=== PATIENT | male | born 1940 | race Caucasian/White ===

== ENCOUNTER → 2017-12-25 06:44 | Outpatient (CLI) | payer MEDICARE, SELFPAY ==
--- NOTE | 2017-12-25 06:46 | ECHOCS_ITS ---
Reason For Study: CAD/ASHD Procedure This was a 2D Doppler, Color Flow transthoracic echocardiogram. The study was technically difficult. Contrast injection was performed. Exam performed in department. Left Ventricle Normal LV size. Left ventricular systolic function is normal. The estimated ejection fraction is 65 %. No evidence for diastolic dysfunction. No regional wall motion abnormalities noted. Right Ventricle Normal RV size. Normal systolic function. Atria Normal left atrium. Normal right atrium. Mitral Valve There is mild to moderate mitral annular calcification. Tricuspid Valve Normal tricuspid valve. Mild (1+) tricuspid valve insufficiency. Pulmonary artery systolic pressure is 28 mmHg. Aortic Valve Normal aortic valve. Pulmonic Valve The pulmonic valve is not well visualized. Great Vessels Normal aortic root. The pulmonary artery is normal size. Normal inferior vena cava. Pericardium/Pleural No pericardial effusion. Medication Diluted definity 3.0ml given slow IV push to enhance endocardial definition. MMode/2D Measurements & Calculations LVIDd: 4.2 cm IVSd: 1.2 cm Ao root diam: 3.4 cm LVIDs: 3.0 cm LVPWd: 0.91 cm LA dimension: 3.9 cm RVDd: 2.3 cm FS: 28.6 % LAV(MOD-bp): 41.6 ml LAV(MOD-bp) Indexed: 21.6 ml/m2 LA A4 area: 13.8 cm2 RA A4 area: 12.3 cm2 LAV(MOD-sp2): 37.2 ml LAV(MOD-sp4): 37.9 ml Time Measurements MV dec time: 0.22 sec Doppler Measurements & Calculations MV E max terrell: 65.3 cm/sec Lat Peak E' Terrell: 5.3 cm/sec Med Peak E' Terrell: 4.7 cm/sec MV A max terrell: 90.3 cm/sec E/E' lat: 12.3 E/E' med: 13.9 MV E/A: 0.72 Ao V2 max: 88.2 cm/sec LV V1 max: 69.7 cm/sec PA V2 max: 67.2 cm/sec Ao max P.1 mmHg LV V1 max P.9 mmHg TR max terrell: 240.6 cm/sec TR max P.3 mmHg Interpretation Summary Normal LV size. Left ventricular systolic function is normal. The estimated ejection fraction is 65 %. No evidence for diastolic dysfunction. Mild (1+) tricuspid valve insufficiency. Contrast injection was performed. Ordering Physician: Herman López Referring Physician: Herman López Performed By: Angelique Cassidy, JOI, RVT
--- NOTE | 2017-12-25 12:43 | STRESSREP ---
Stress Test Report Exercise myocardial perfusion stress test. 77-year-old man with a history of coronary artery disease status post angioplasty and stenting of the left anterior descending artery and right coronary artery. Stress protocol: Resting EKG demonstrates normal sinus rhythm with a rate of 80 bpm. Resting blood pressure is 152/94 mmHg. Patient exercised according to the regular Riaz protocol for a total duration of 3 minutes. The maximum heart rate attained was 148 bpm which was 102% of maximal predicted heart rate the maximum workload attained was 4.6 metabolic equivalents. The patient maintained sinus rhythm throughout the recording. At rest there were no ST or T-wave changes noted suggest ischemia peak exercise no ST or T-wave changes were noted suggest ischemia. No obvious clinical angina was noted the patient however got markedly short of breath necessitating discontinuation of the test. Blood pressure was 184/88 minute meters of mercury. Myocardial perfusion protocol. 11.8 mCi of technetium 99m sestamibi was injected at rest. The patient exercised according to regular Riaz protocol for 3 minutes attaining 102% maximum predicted heart rate and a workload of 4.6 metabolic equivalents. At peak exercise 34.1 mCi of technetium 99m sestamibi was injected. Stress images were obtained stress and rest images were reconstructed and compared in the short axis vertical long and horizontal long axis. Gated images were also obtained. Perfusion SPECT analysis: Review of the stress images demonstrate normal uptake of tracer noted in all areas myocardium except for mildly reduced perfusion in the mid inferior wall. The resting images demonstrate a similar pattern. A previous inferior infarct cannot be completely excluded. No obvious ischemia is however seen of the low workload attained. Gated SPECT analysis: The gated ejection fraction is 64%. Conclusion: Exercise myocardial perfusion stress test with no evidence of ischemia noted at a low workload. The low workload could affect sensitivity for detection of ischemia. Marked functional aerobic impairment. Preserved ejection fraction.
== END ==
PROVIDERS: Family Provider Family Medicine; PCP Family Medicine; Visit Provider Internal Medicine Cardiovascular Disease
DX: I25.10 Atherosclerotic heart disease of native coronary artery without angina pectoris (principal)
CPT/HCPCS: 78452; 93017; 93306; A9500; Q9957; A4216; C8929

== ENCOUNTER → 2019-12-10 | Outpatient (CLI) | payer MEDICARE, SELFPAY ==
[2019-11-11 12:40] VITALS: BMI 30.3
--- NOTE | 2019-12-10 06:36 | ECHOCS_ITS ---
Reason For Study: CAD/ASHD Procedure This was a 2D Doppler, Color Flow transthoracic echocardiogram. The study was technically difficult. Contrast injection was performed. Exam performed in department. Left Ventricle Normal LV size. Left ventricular systolic function is normal. The estimated ejection fraction is 65 %. Stage 1 diastolic dysfunction. No regional wall motion abnormalities noted. Right Ventricle Normal RV size. Normal systolic function. Atria Normal left atrium. Normal right atrium. Mitral Valve Normal mitral valve. Tricuspid Valve Normal tricuspid valve. Aortic Valve Normal aortic valve. Pulmonic Valve Normal pulmonic valve. Great Vessels Normal aortic root. The pulmonary artery is normal size. Normal inferior vena cava. Pericardium/Pleural No pericardial effusion. Medication Diluted definity 3ml given slow IV push to enhance endocardial definition. MMode/2D Measurements & Calculations LVIDd: 3.4 cm IVSd: 1.1 cm LAV(MOD-bp): 31.8 ml LVIDs: 2.7 cm LVPWd: 0.99 cm FS: 20.5 % LAV(MOD-bp) Indexed: 16.3 ml/m2 LAV(MOD-sp2): 38.8 ml LAV(MOD-sp4): 23.3 ml LA A4 area: 11.5 cm2 RA A4 area: 8.5 cm2 Time Measurements MV dec time: 0.28 sec Doppler Measurements & Calculations MV E max terrell: 68.3 cm/sec Lat Peak E' Terrell: 6.1 cm/sec Med Peak E' Terrell: 3.9 cm/sec MV A max terrell: 84.9 cm/sec E/E' lat: 11.3 E/E' med: 17.6 MV E/A: 0.80 MV V2 max: 83.5 cm/sec MV P1/2t max terrell: 66.0 cm/sec Ao V2 max: 88.4 cm/sec MV max P.8 mmHg MV P1/2t: 70.9 msec Ao max P.1 mmHg MV V2 mean: 53.4 cm/sec MV mean P.3 mmHg MV dec slope: 272.6 cm/sec2 MV V2 VTI: 19.1 cm MVA(P1/2t): 3.1 cm2 LV V1 max: 82.3 cm/sec PA V2 max: 85.7 cm/sec LV V1 max P.7 mmHg Interpretation Summary Normal LV size. Left ventricular systolic function is normal. The estimated ejection fraction is 65 %. Stage 1 diastolic dysfunction. Contrast injection was performed. Ordering Physician: Herman López Referring Physician: Herman López Performed By: Kelvin Castellon RCS
--- NOTE | 2019-12-10 13:38 | STRESSREP_ITS ---
Stress Test Report Pharmacologic myocardial perfusion stress test. 79-year-old man with a history of coronary artery disease status post previous angioplasty and stenting of the left anterior descending artery in the right coronary artery. Stress protocol: Resting EKG demonstrates normal sinus rhythm with a rate of 77 bpm normal intervals are noted resting blood pressures 138/82 mmHg. 0.4 mg of regadenoson was infused per usual protocol followed by rapid venous flush injection continuous EKG monitoring was performed. The maximum heart rate attained was 103 bpm which was 72% of maximum active heart rate the maximum workload was 1 metabolic equivalent. At rest there were no ST or T wave changes noted suggest ischemia peak exercise upsloping ST changes were noted with no meet the criteria for ischemia. Resting blood pressures 132/82 with a final blood pressure of 130/70 mmHg the peak blood pressure 140/74 mmHg. Myocardial perfusion protocol. 14.5 mCi of technetium 99m sestamibi was injected at rest. 0.4 mg of regadenoson was infused per usual protocol peak infusion 44.0 mCi of technetium 99m sestamibi was injected stress images were obtained stress and rest images were reconstructed and compared in the short axis vertical long horizontal long axis. Gated images were also obtained Perfusion SPECT analysis: Review of the stress images demonstrate normal uptake of tracer noted in the septum anterior wall and lateral wall. The stress images demonstrate reduced perfusion involving the inferior wall. The resting images demonstrate improved perfusion suggestive of inferior wall ischemia. The gated ejection fraction is noted to be 65%. Conclusion: Pharmacologic myocardial perfusion stress test with evidence of inferior ischemi a. Preserved ejection fraction.
== END | disposition home or self-care (01) ==
PROVIDERS: PCP Family Medicine; Referring Provider Internal Medicine Cardiovascular Disease; Visit Provider Internal Medicine Cardiovascular Disease
DX: I25.10 Atherosclerotic heart disease of native coronary artery without angina pectoris (principal); I71.4 Abdominal aortic aneurysm, without rupture
CPT/HCPCS: 78452; 93017; 93306; A9500; Q9957; A4216; C8929; J2785

== ENCOUNTER 2019-12-27 07:42 | Day surgery (SDC) | payer MEDICARE, SELFPAY ==
[2019-11-11 12:40] VITALS: BMI 30.3
--- NOTE | 2019-12-13 11:50 | RAD_ITS ---
STUDY: X-RAY CHEST REASON FOR EXAM: Male, 79 years old. COUGH, CONGESTION AND SOB ABN STRESS TEST. TECHNIQUE: PA and lateral views of the chest. COMPARISON: 11/30/2016 FINDINGS: There is hyperinflation of the lungs consistent with chronic obstructive lung disease (COPD). There is no demonstrated pleural abnormality. Normal size heart. Normal mediastinum and juan. Normal visualized pulmonary arteries. Normal visualized aortic arch and descending thoracic aorta. Normal visualized thoracic spine. Normal visualized ribs, clavicles, and shoulders. There is no demonstrated abnormality of the visualized soft tissue structures of the upper abdomen. RAD/Chest PA and Lateral IMPRESSION: Emphysema without pneumonia or atelectasis. Electronically Signed: Pancho Swift MD at 12:50 EDT Tel , Service support ,
[2019-12-13 11:59] LABS: Absolute Lymphocyte Count 1.93 X10^3/uL (0.83-4.51); Absolute Neutrophil Count 3.1 X10^3/uL (2.0-7.7); Basophil# 0.05 X10^3/uL; Basophil% 0.8 % (0-1); Eosinophil# 0.19 X10^3/uL; Eosinophils% 3.2 % (0-5); Hemoglobin 15.7 g/dL (13.0-16.5); Lymphocyte # 1.93 X10^3/ul (4.0); Lymphocyte % 32.8 % (19-41); Mean Corp Hgb Conc 34.1 g/dL (32-36); Mean Corpuscular Hgb 30.3 pg (27.0-32.0); Mean Corpuscular Volume 88.8 fL (80-94); Mean Platelet Vol. 10.1 fl (6.2-12.0); Monocyte# 0.59 X10^3/uL; NRBC Flagged by Analyzer 0 % (0-5); Neutrophil # 3.11 X10^3/uL (2.7-7.7); Neutrophil % 52.9 % (47-70); Platelet Count 145 K/mm3 (150-450); RBC Distribution Width CV 12.3 % (11.6-14.6); RBC Distribution Width SD 39.9 fl (35.1-43.9); Red Blood Count 5.18 M/mm3 (4.6-6.2); White Blood Count 5.9 K/mm3 (4.4-11.0)
[2019-12-13 12:13] LABS: Anion Gap 3 (5-15); BUN 14 mg/dL (7-18); BUN/Creat Ratio 15.4 RATIO (10-20); Calcium,Total 8.8 mg/dL (8.5-10.1); Chloride 107 mmol/L (98-107); Creatinine, Serum 0.91 mg/dL (0.70-1.30); EST Glomerular Filtration Rate 86 mL/min (>60); Est Glom Filt Rate - Afr Amer 104 mL/min (>60); Glucose 88 mg/dL (74-106); Potassium 3.9 mmol/L (3.5-5.1); Sodium Level 139 mmol/L (136-145)
[2019-12-13 12:16] LABS: Prothrombin Time (Protime)PT. 12.9 SECONDS (11.7-14.9)
[2019-12-13 12:17] LABS: Partial Thromboplast Time 28.4 Seconds (24.1-36.2)
[2019-12-24 12:52] VITALS: BMI 30.3
[2019-12-27] VITALS (33 sets, daily range): BP systolic 92–134; BP diastolic 62–109; PULSE 69–97; RESP 13–97; TEMP 36.8–36.9; O2SAT 17–97; BMI 27.9; BMI 30.3
--- NOTE | 2019-12-27 08:00 | HP_ITS ---
[facility] History of Present Illness Details: PREETHI OQUENDO, is a 79 M who presents to the office today for a cardiovascular outpatient follow-up. He has a history of coronary artery disease status post previous angioplasty and stenting remotely to LAD and RCA in 2003. He also has a history of hyperlipidemia, previous tobacco use, and abdominal aortic aneurysm. Pt denies chest, arm, jaw, or neck discomfort. His exercise tolerance is stable. Pt denies symptoms of CHF, palpitations, lightheadedness, dizziness, near syncopal or syncopal episodes. Pt denies edema or claudication issues. Pt. denies orthopnea, PND, myalgia, or unexplainable fatigue. His physical exam demonstrates clear lung paige regular rate and rhythm and no pedal edema He underwent a stress test which demonstrated Pharmacologic myocardial perfusion stress test with evidence of inferior ischemia. Preserved ejection fraction. Intake Vital Signs 12/31/19 BMI 27.9 Intake Visit Reasons: Amb Documentation Allergies No Known Allergies Allergy (Verified 11/11/19 12:42) [facility] Medical History Atherosclerosis of coronary artery of [place] heart without angina pectoris (Chronic) Hyperlipidemia (Chronic) Abdominal aortic aneurysm (AAA) (Chronic) Arthritis (Chronic) BPH (benign prostatic hyperplasia) (Chronic) Obesity (BMI 30.0-34.9) (Chronic) Surgical History Stented coronary artery (Chronic 12/27/19) History of coronary artery stent placement (Chronic 2003) Family History Mother Heart disease Social History Smoking Status: Former smoker quit date: 06/06/14 pack-years: 80 ROS Const Const: Negative for fatigue, weakness, headache(s), frequent falls, difficulty sleeping or excessive sweating Eyes Eyes: Negative for loss of peripheral vision, transient loss of vision, blurry vision, double vision or tunnel vision ENT ENT: Negative for headache(s) or balance problems Cardio Chest Pain: No Palpitations: No Edema: None Muscle aches with walking: None Resp Respiratory: Positive for SOB with activity; negative for SOB at rest, SOB orthopnea\SOB lying down, Cough or paroxysmal nocturnal dyspnea Additional Details: URI GI GI: Negative nausea, vomiting, heartburn or black,tarry stools : Negative for hematuria Musc Musc: Negative for muscle aches/ myalgia, muscle weakness, joint pain or balance problems Skin Skin: Negative non-healing lesions, rash or unusual bruising Neuro Neuro: Negative for frequent falls, headache(s), weakness, blurry vision or double vision Miguelangel Hematologic/Lymphatic: Negative for easy bleeding or easy bruising Endo Endo: Negative for fatigue or excessive sweating Psych Psych: Negative for anxiety or depression Allergy Allergy/Immunology: Negative for rash Cardiology Exam Const Appearance: cooperative, healthy appearing, no acute distress, well developed and well groomed Nutritional Appearance: average body habitus and well nourished Orientation: alert, awake and oriented x3 Head Head: normal to inspection, normocephalic and atraumatic Ears: hearing grossly normal bilaterally and external ears normal Nose: external nose normal, nares normal, nasal mucous membranes and turbinates normal, septum normal, no nasal discharge Face and Sinus: face symmetric Mouth: oral mucosae normal, tongue normal, oropharynx normal and moist mucous membranes Teeth and gingiva: dentition normal Throat: posterior oropharynx normal, tonsils normal and uvula midline Eyes General: appearance normal, both eyes and all related structures Eyelids: eyelids normal Conjunctivae: conjunctivae normal Pupils: PERRL, normal by confrontation and accommodation normal EOM: EOM intact bilaterally Neck Neck: normal visual inspection, trachea midline and no JVD JVD: +5 Carotids: normal carotid upstroke and bounding pulses Chest Chest inspection: normal inspection of the chest, symmetric chest movement and normal respiratory effort Auscultation: Bilateral: Clear to Auscultation Cardio Palpation: normal PMI Rate: regular rate Rhythm: regular rhythm Heart sounds: S1 normal, S2 normal and normal, physiologic split S2; negative rub, gallop or murmur GI GI: normal to inspection, soft, no hepatosplenomegaly and bowel sounds present Neuro General: alert, awake, oriented x3, gait normal, moves all extremities and no focal sensory deficit Skin Skin: no rashes or lesions noted Extremities Pulses: Normal: Right Femoral Pulse, Left Femoral Pulse, Right Dorsalis Pedis Pulse, Left Dorsalis Pedis Pulse, Right Posterior Tibial Pulse, Left Posterior Tibial Pulse, Right Radial Pulse, Left Radial Pulse Lower Extremity Edema: None: Bilateral Musculoskel Musculoskeletal: No joint tenderness Psych Psychological: normal affect Assessment & Plan Problems 1. Atherosclerosis of [place] coronary artery of [place] heart without angina pectoris I25.10 2. Pure hypercholesterolemia E78.00 3. Abnormal stress test R94.39 Plan Based on stress test, he will undergo a heart cath. He is aware that if he requires stenting he will need to spend the night. He will follow up in the office accordingly. Coding Level of Care Code No Charge Diagnoses Atherosclerosis of [place] coronary artery of [place] heart without angina pectoris I25.10 ??Coronary Disease-Associated Artery/Lesion type: [place] artery Pure hypercholesterolemia E78.00 ??Hyperlipidemia type: pure hypercholesterolemia Abnormal stress test R94.39 Coding Level of Care Code No Charge Diagnoses Atherosclerosis of [place] coronary artery of [place] heart without angina pectoris I25.10 ??Coronary Disease-Associated Artery/Lesion type: [place] artery Pure hypercholesterolemia E78.00 ??Hyperlipidemia type: pure hypercholesterolemia Abnormal stress test R94.39 Supplemental Info Supplemental Information Diagnostics Electrocardiogram 12/28/19 Echocardiogram 12/10/19 Stress Test Nuclear Medicine 12/10/19 Stress Test 12/10/19 Cardiac Catheterization 12/27/19 Chest X-Ray 12/13/19
--- NOTE | 2019-12-27 09:51 | CL.D_ITS ---
Patient Name: PREETHI OQUENDO Study Date: 12/27/2019 Performing: Herman López MD Ht: 66.14 inches 168 cm : 1940 Wt: 187.39 lbs 85 kg Age: 79 Gender: male BSA: 1.95 PROCEDURE(S) PERFORMED [id number]/LV CLINICAL PROFILE AND INDICATIONS Indications: Suspected CAD Heart Failure: None Stress/Imaging Date: 12/21/2019Stress Test with SPECT MPI: Positive Intermediate Risk CAD Presentations: Other: SOB CONCLUSIONS Moderate CADInvolving the right coronary artery with moderately severe CAD noted involving the mid ci rcumflex artery. The previously placed stent in the left anterior descending artery as well as the r ight coronary artery has mild in-stent stenosis. Patient also has an abnormal inferior ischemia. RECOMMENDATIONS Referred for immediate PCI DESCRIPTION OF PROCEDURE The patient arrived to the procedure lab. The risks and benefits of the procedure as well as a full d escription of our services here and current unavailability of surgical backup were fully explained to the patient and/or their significant other prior to the catheterization. The Timeout was completed, verifying the correct patient and procedure. The patient's procedural site was prepped and draped in the usual fashion. Local anesthetic was given subcutaneously to right groin region with Lidocaine 2%. Using a modified Seldinger technique, arterial access was obtained via the right femoral artery, a 5 Fr sheath was inserted. Left Coronary Artery selective angiography was performed in multiple views u sing a 5 Fr. JL4 catheter. Right Coronary Artery selective angiography was then performed in multiple views using a 5 Fr. 3DRC (Tej) catheter. Left Ventriculography was performed in GLOVER projection using a 5 Fr. Pigtail catheter. LV to AO pullback pressures were then recorded. CORONARY ANGIOGRAPHY DOMINANCE: Right Dominant LEFT HEART ASSESSMENT Left Ventricular Ejection Fraction: by LV Gram 60 % Normal LV wall motion Normal Left Ventricular systolic function LEFT MAIN: Mild calcification LEFT ANTERIOR DESCENDING ARTERY: MID LAD: Previously placed stent is patent DIAGONAL 1: Proximal - Moderate luminal irregularities up to 50% CIRCUMFLEX ARTERY: PROX CIRC: Moderate luminal irregularities up to 50% DISTAL CIRC: 75 % Stenosis RIGHT CORONARY ARTERY: MID RCA: Previously placed stent has an instent 30 % restenosis COMPLICATIONS PROCEDURE MEDICATIONS Versed 1 mg IV Oxygen: 2 L/min via nasal cannula Heparin 6000 unit(s) IV 12/27/2019 09:28:28 Nitro 200 mcg IC 12/27/2019 09:29:47 IV Bolus: .45 NaCl ml total 12/27/2019 09:11:48 SUMMARY OF HEMODYNAMIC DATA Time AIR REST ECG 07:59:23 AO 89/67 (76) SA 09:11:21 LV 87/5, 9 09:19:06 LV 88/7, 10 09:19:12 LV 87/7, 12 09:19:55 LVp 88/5, 12 09:19:59 AOp 94/58 (71) 09:20:04 AO 111/63 (80) 09:22:42 Signed By Herman López MD On 12/27/2019 9:50:59 AM Herman López MD
[2019-12-27 10:16] LABS: ACT Activated Clotting Time 197 sec (74-137)
--- NOTE | 2019-12-27 10:17 | CL.I_ITS ---
Patient Name: PREETHI OQUENDO Study Date: 12/27/2019 Performing: Micky Monae MD Ht: 66.14 inches 168 cm : 1940 Wt: 187.39 lbs 85 kg Age: 79 Gender: male BSA: 1.95 PROCEDURE(S) PERFORMED [id number] W OR WO PTCA, SINGLE CORONARY ARTERY CLINICAL PROFILE AND CO-MORBIDITIES Indications: Suspected CAD, Stable Known CAD Heart Failure: None Stress/Imaging Date: 12/21/2019 Stress Test with SPECT MPI: Positive Intermediate Risk Angina Classification Anginal Classification w/in 2 Weeks: Anginal Equivalent Dyspnea CAD Presentations: Other: SOB Other: dyspnea on exertion Comorbidities/Risk Factors: Hypertension Dyslipidemia CONCLUSIONS Successful PTCA/NAMRATA to distal LCX with a 2.5 x 24 Promus Synergy, post dilated with a 2.5 and 3.0 x 8 NC balloon; 75%-->0%, no dissection. RECOMMENDATIONS Highly recommend quitting all tobacco products Follow up with primary skiing instructor Risk factor modification ASA Indefinitley Plavix for at least 12 months Routine post interventional care Refer for Outpatient Cardiac Rehab Manual sheath removal per protocol Follow up with Dr. López Manual sheath removal. D/w Dr López. Will pursue medical management of proximal LCX and OM as these appeared to have non-obstructive disea se. If pt continues to have NIELSEN and/or anginal symptoms would consider PCI of OM and proximal LCX. DESCRIPTION OF PROCEDURE The patient arrived to the procedure lab. The risks and benefits of the procedure as well as a full d escription of our services here and current unavailability of surgical backup were fully explained to the patient and/or their significant other prior to the catheterization. The Timeout was completed, verifying the correct patient and procedure. The patient's procedural site was prepped and draped in the usual fashion. Local anesthetic was given subcutaneously to right groin region with Lidocaine 2% Using a modified Seldinger technique,arterial access was obtained via the right femoral artery, a 5Fr sheath was inserted. Left Coronary Artery selective angiography was performed in multiple views usin g a 5 Fr. JL4 catheter. Right Coronary Artery selective angiography was then performed in multiple vi ews using a 5 Fr. 3DRC (Tej) catheter. Left Ventriculography was performed in GLOVER projection usi ng a 5 Fr. Pigtail catheter. LV to AO pullback pressures were then recorded.The images were reviewed and options discussed. A decision was then made to proceed with an Intervention, IVUS o r other adjunct procedure. Arterial sheath was exchanged for a 6 Fr Sheath. EBU 3.75 Guide catheter was inserted and engaged into the LCA. BMW Guide wire was advanced to the Circumflex. Emerge 2.00x12 Balloon catheter was ins erted. PTCA balloon inflated at 7 atms for 13 secs. PTCA balloon inflated at 7 atms for 11 secs. PTCA balloon inflated at 9 atms for 16 secs. PTCA balloon inflated at 9 atms for 22 secs. Angiogram perfo rmed post balloon dilatation. Synergy 2.50x24 Drug Eluting stent was inserted. Angiogram performed po st stent deployment. NC Emerge 3.00x8 Balloon catheter was inserted. Angiogram performed post balloon dilatation. NC Emerge 2.50x8 Balloon catheter was inserted. Angiogram performed post balloon dilatat ion. Contrast was injected through the sheath and the Right Iliac and Femoral artery were assessed fo r possible closure device. The arterial sheath was sutured in place and capped INTERVENTION INFORMATION LESION SITE: Circumflex (Distal) Lesion Complexity: High/C, lesion at bifurcation: No, thrombus present: No, lesion length: 24 mm, cul prit lesion: Yes Pre Stenosis: 75 % Pre intervention CAMILLA flow: 3 PROCEDURE: Drug Eluting Stent with pre and post dilatation Post Stenosis: 0 % Post intervention CAMILLA flow: 3 Lesion Devices: Dang .014 BMW [place] Straight 190cm Medtronic 6 Fr EBU3.75 100cm Guide Catheter [employer] EMERGE MR 2.00x12 BALLOON [employer] Synergy MR NAMRATA 2.50x24 Davis Sci NC EMERGE MR 3.00x08 BALLOON [employer] NC EMERGE MR 2.50x08 BALLOON COMPLICATIONS No Complications PROCEDURE MEDICATIONS Versed 1 mg IV Oxygen: 2 L/min via nasal cannula Heparin 6000 unit(s) IV 12/27/2019 09:28:28 Nitro 200 mcg IC 12/27/2019 09:29:47 IV Bolus: .45 NaCl 700ml total 12/27/2019 09:11:48 SUMMARY OF HEMODYNAMIC DATA Time AIR REST ECG 07:59:23 AO 89/67 (76) SA 09:11:21 LV 87/5, 9 09:19:06 LV 88/7, 10 09:19:12 LV 87/7, 12 09:19:55 LVp 88/5, 12 09:19:59 AOp 94/58 (71) 09:20:04 AO 111/63 (80) 09:22:42 Signed By Micky Monae MD On 12/27/2019 10:16:19 AM Micky Monae MD
--- NOTE | 2019-12-27 10:24 | EKG12_ITS ---
Test Reason : POST PCI Blood Pressure : / mmHG Vent. Rate : 074 BPM Atrial Rate : 074 BPM P-R Int : 196 ms QRS Dur : 090 ms QT Int : 380 ms P-R-T Axes : 080 086 076 degrees QTc Int : 421 ms Normal sinus rhythm Normal ECG When compared with ECG of 30-NOV-2016 10:34, Vent. rate has decreased BY [address] elevation now present in Inferior leads Nonspecific T wave abnormality no longer evident in Lateral leads Confirmed by MCKENNA VACA ([id number]), offline editor CHAYA EVANS ([id number]) on 12/30/2019 7:59:49 AM Referred By: Herman López Confirmed By:MCKENNA VACA
[2019-12-27] MEDS: 0.9% Normal Saline 1,000 ML 150 ML IV (10:44)
--- NOTE | 2019-12-27 11:10 | CRPHASE1 ---
Patient Communication PHII Cardiac Rehab Discussed with Patient:: Yes Guide to Cardiac Rehab Given to Patient:: Yes Cardiac Rehab Facility Choice List Given to Patient:: Yes - pt chooses [facility] Choice Program [facility] CR PHII:: Communication Given to CR, Refer to [facility] Bulldozer Mechanic:: Micky Monae Phase II Cardiac Rehab:: Yes Sessions:: 36 sessions - 3 days/wk, 12 weeks Risk Factors/Lifestyle Smoking Status: Former smoker Hx Dyslipidemia: Yes Height: 5 ft 6 in Weight:: 85.275 kg BMI: 30.3 Family History: Family History (Last Reviewed 11/11/19 @ 14:[address] Herman López MD) Mother Heart disease Phase I Education Given On:: [place], Nutrition, Antiplatelet medication, CHF, Smoking cessation, Diabetes - Type I, Diabetes - Type II Issues Affecting Care:: None Knowledge of Condition:: Yes Learning Preferences: Verbal Hospital Course Cardiac Cath Date:: 12/27/19 Medical/Surgical History Dyslipidemia:: Yes PTCA:: Yes Discharge/Home/Social Eval Discharge Disposition: Home Marital Status: Cardiac Rehabilitation Info Cardiac Rehabilitation Program Information: Cardiac Rehabilitation is important for patients like you who are recovering from a heart problem. Cardiac rehabilitation programs are recognized as integral to the continued care of the patient with coronary heart disease. The cardiac rehabilitation program is designed to optimize a patient's physical, psychological, and social functioning. Health managed care nurse work in cardiac rehabilitation programs and assist you with getting the treatments you need to get stronger and healthier - like exercise, healthy eating habits, and medications. Cardiac rehabilitation has been show to help people with heart problems live longer and have better life enjoyment than people who do not go to cardiac rehabilitation. Please contact the Cardiac Rehabilitation Program at [facility] at in two weeks if you have not heard from them.
--- NOTE | 2019-12-27 11:14 | CRPH1.INSTRU ---
General Education CAD and cardiac anatomy and function:: Patient communicates acknowledgment Explanation of diagnoses and procedures:: Patient communicates acknowledgment Sign/Symptoms of AR:: Patient communicates acknowledgment Antiplatelet therapy: Patient communicates acknowledgment Proper use of NTG-SL: Not instructed Emergency procedures and activation of EMS: Patient communicates acknowledgment Compliance of all prescribed medications: Patient communicates acknowledgment Smoking Recommendations Include:: Previous smoker; encourage continued cessation Nicotine/Smoking Response Code:: Patient communicates acknowledgment Dyslipidemia Recommendations Include:: Lipid profile provided, Reviewed NCEP/ATP guidelines, Therapeutic Lifestyle Change dietary guidelines Dyslipidemia Response Code:: Patient communicates acknowledgment Overweight/Obesity Patient Overweight/Obesity Risk Factors Are:: Obesity - > or = 30 Recommendations Include:: Weight loss of 5-10%, Reduced calorie diet, Exercise 5-7 times/week Overweight/Obesity:: Patient communicates acknowledgment Hypertension Hypertension:: Patient communicates acknowledgment Heart Disease Heart Disease Response Code:: Patient communicates acknowledgment Diabetes Diabetes:: Patient communicates acknowledgment Metabolic Syndrome Metabolic Syndrome Response Code:: Patient communicates acknowledgment Sedentary Sedentary Response Code:: Patient communicates acknowledgment Stress Stress Response Code:: Patient communicates acknowledgment
[2019-12-27 11:26] LABS: ACT Activated Clotting Time 164 sec (74-137)
--- NOTE | 2019-12-27 13:16 | DCINST_ITS ---
Discharge Diet: Low fat/ Low Cholesterol Discharge Activity: Return to Normal Activity May shower in (days): 1 - No tub baths for 5 days May resume sexual activity in: 1-2 weeks Lifting Restrictions: Do not lift anything greater than 10 pounds for 3 days Call your doctor if your incision/area has: Continuous Slow Oozing, Sudden Increased Bleeding, Increased Pain/ Swelling, Increased Redness, Foul Smelling Discharge, Swelling at the incision site Call your doctor if you observe: Fever of 101 or Higher, Shortness of breath, Chest pain Remove Dressing in (days):: 1 Cleanse incision/area with: Soap & Water Additional Instructions: You will continue with Aspirin and Plavix therapy. The goal is to remain on Aspirin and Plavix jointly for at least 1 year. If anyone asks you to stop your Plavix, please call the [facility] Office at [phone]. A new prescription for Plavix for 1 year was sent to your mail in pharmacy. We will call you to schedule an office appointment in one month. Allergies/Adverse Reactions: Allergies No Known Allergies Allergy (Verified 11/11/19 12:42) Medications to take at Discharge Aspirin [Aspirin, Baby] 81 mg PO DAILY@0800 11/30/16 Tamsulosin HCl [Flomax] 0.4 mg PO DAILY 11/30/16 finasteride 5 mg tablet 5 mg PO QDAY 12/03/17 pravastatin 80 mg tablet 80 mg PO QHS 12/03/17 lisinopril 10 mg tablet 10 mg PO DAILY #90 tab 11/11/19 Metoprolol(XL)Succ [Toprol Xl (Beta Derick)] 25 mg PO DAILY #90 tab 12/28/19 clopidogrel 75 mg tablet 75 mg PO DAILY #90 tab 12/28/19 The following prescriptions were given: Metoprolol(XL)Succ [Toprol Xl (Beta Derick)] 25 mg PO DAILY #90 tab Transmission Status: Received by [facility] Mail Delivery Orders to be completed after discharge: Phase II, Outpatient Cardiac Rehab Location: None Selected Primary Care Physician: Forest Maki MD [Primary Care Provider] - Test Results: Test results from this visit will be discussed in further detail at your follow- up appointment, if applicable. Please Follow Up With: [facility] will call Proposed Discharge Date: 12/28/19 Cardiac Rehabilitation Info Cardiac Rehabilitation Program Information: Cardiac Rehabilitation is important for patients like you who are recovering from a heart problem. Cardiac rehabilitation programs are recognized as integral to the continued care of the patient with coronary heart disease. The cardiac rehabilitation program is designed to optimize a patient's physical, psychological, and social functioning. Health field care advocate work in cardiac rehabilitation programs and assist you with getting the treatments you need to get stronger and healthier - like exercise, healthy eating habits, and medications. Cardiac rehabilitation has been show to help people with heart problems live longer and have better life enjoyment than people who do not go to cardiac rehabilitation. Please contact the Cardiac Rehabilitation Program at [facility] at in two weeks if you have not heard from them.
[2019-12-27] MEDS: Pravastatin 80 MG Tablet PO (21:16)
[2019-12-28] VITALS (11 sets, daily range): BP systolic 99–126; BP diastolic 61–90; PULSE 69–83; RESP 13–16; TEMP 36.7–36.8; O2SAT 92–96
[2019-12-28 05:07] LABS: Hematocrit 39.8 % (40-54); Hemoglobin 13.4 g/dL (13.0-16.5); Mean Corp Hgb Conc 33.7 g/dL (32-36); Mean Corpuscular Hgb 30.1 pg (27.0-32.0); Mean Corpuscular Volume 89.4 fL (80-94); Mean Platelet Vol. 9.8 fl (6.2-12.0); Platelet Count 152 K/mm3 (150-450); RBC Distribution Width CV 12.3 % (11.6-14.6); RBC Distribution Width SD 40.5 fl (35.1-43.9); Red Blood Count 4.45 M/mm3 (4.6-6.2); White Blood Count 6.1 K/mm3 (4.4-11.0)
[2019-12-28 05:26] LABS: AST(SGOT) 15 U/L (15-37); Alanine Aminotransfer ALT/SGPT 18 U/L (16-61); Alkaline Phosphatase 62 U/L (45-117); Anion Gap 8 (5-15); BUN 14 mg/dL (7-18); BUN/Creat Ratio 16.7 RATIO (10-20); Chloride 107 mmol/L (98-107); Creatinine, Serum 0.84 mg/dL (0.70-1.30); EST Glomerular Filtration Rate 94 mL/min (>60); Est Glom Filt Rate - Afr Amer 114 mL/min (>60); Glucose 87 mg/dL (74-106); Potassium 3.9 mmol/L (3.5-5.1); Sodium Level 140 mmol/L (136-145)
--- NOTE | 2019-12-28 08:18 | PCM.PN.BLA ---
Progress Note Aspirin at discharge? Yes, 81 mg p.o. daily Antiplatelet therapy at discharge? Yes, Plavix 75 mg p.o. daily TJ/ARB at discharge? Yes, lisinopril 10 mg p.o. daily Statin at discharge? Yes, pravastatin 80 mg p.o. daily Beta-miles at discharge? Yes, metoprolol succinate ER 25 mg. STROKE Vital Signs/Narrative: Vital Signs Pulse Resp BP Pulse Ox 12/28/19 08:00 78 16 122/90 H 96 12/28/19 07:41 95 12/28/19 07:00 74 16 121/82 H 95 12/28/19 06:00 71 15 115/61 95 12/28/19 05:00 75 15 126/81 H 95
[2019-12-28] MEDS: Aspirin 81 MG TAB.CHEW PO (08:34)
[2019-12-28] MEDS: Metoprolol(XL)Succ 25 MG Tablet PO (08:34)
[2019-12-28] MEDS: Finasteride 5 MG Tablet PO (08:34)
[2019-12-28] MEDS: Lisinopril 10 MG Tablet PO (08:34)
[2019-12-28] MEDS: Tamsulosin HCl 0.4 MG Capsule PO (08:34)
[2019-12-28] MEDS: Clopidogrel Bisulfate 75 MG Tablet PO (08:34)
--- NOTE | 2019-12-28 10:00 | EKG12_ITS ---
Test Reason : Blood Pressure : / mmHG Vent. Rate : 070 BPM Atrial Rate : 070 BPM P-R Int : 198 ms QRS Dur : 092 ms QT Int : 384 ms P-R-T Axes : 072 083 074 degrees QTc Int : 414 ms Normal sinus rhythm Normal ECG When compared with ECG of 27-DEC-2019 10:21, MANUAL COMPARISON REQUIRED, DATA IS UNCONFIRMED Confirmed by MCKENNA VACA ([id number]), supervising editor trailer CHAYA EVANS ([id number]) on 12/30/2019 8:00:46 AM Referred By: Herman López Confirmed By:MCKENNA VACA
== END 2019-12-28 09:10 | disposition home or self-care (01) ==
LOC: CLSP 07:49 → ICU 10:23
PROVIDERS: Internal Medicine Cardiovascular Disease; Physician Assistant Medical; PCP Family Medicine; Referring Provider Internal Medicine Cardiovascular Disease; Visit Provider Internal Medicine Cardiovascular Disease
DX: I25.10 Atherosclerotic heart disease of native coronary artery without angina pectoris (principal); R06.02 Shortness of breath; R06.09 Other forms of dyspnea; R94.39 Abnormal result of other cardiovascular function study; I10 Essential (primary) hypertension; E78.5 Hyperlipidemia, unspecified; M19.90 Unspecified osteoarthritis, unspecified site; E66.9 Obesity, unspecified; Z68.27 Body mass index [BMI] 27.0-27.9, adult; Z95.5 Presence of coronary angioplasty implant and graft; Z87.891 Personal history of nicotine dependence
CPT/HCPCS: 36415; 71046; 80048; 80053; 85025; 85027; 85347; 85610; 85730; 92928; 93005; 93458; 99152; 99153; J7030; J7040; Q9967; C1725; C1769; C1874; C1887; C9600

== ENCOUNTER 2025-01-07 23:35 | Inpatient (IN) | payer MEDICARE, SELFPAY ==
[2019-12-27 11:13] VITALS: BMI 30.3
[2025-01-07 23:36] VITALS: BP 120/85; PULSE 101; RESP 24; TEMP 36.6; O2SAT 93; O2SAT 96; BMI 26.6
[2025-01-07 23:43] VITALS: BP 120/85; PULSE 96; RESP 23; TEMP 36.6; O2SAT 95
[2025-01-07 23:50] VITALS: PULSE 93; RESP 27; O2SAT 94
[2025-01-08] VITALS (19 sets, daily range): BP systolic 83–143; BP diastolic 45–110; PULSE 74–97; RESP 16–34; TEMP 36.3–37.2; O2SAT 90–97; BMI 25.6; BMI 25.7
--- NOTE | 2025-01-08 00:15 | EKG12_ITS ---
Test Reason : SOB Blood Pressure : */* mmHG Vent. Rate : 97 BPM Atrial Rate : 97 BPM P-R Int : 162 ms QRS Dur : 80 ms QT Int : 334 ms P-R-T Axes : 65 81 74 degrees QTcB Int : 424 ms Sinus rhythm with Premature atrial complexes Otherwise normal ECG Confirmed by LOREE ORTIZ, GER ([id number]), fan mail editor LARA YOUNG ([id number]) on 01/10/2025 5:58:42 AM Referred By: CEDRIC Confirmed By: GER RALPH MD
[2025-01-08] MEDS: MethylPREDNISolone 125 MG/2 ML Vial IV (00:27)
[2025-01-08 00:33] LABS: Absolute Lymphocyte Count 1.28 X10^3/uL (0.83-4.51); Absolute Neutrophil Count 11.3 X10^3/uL (2.0-7.7); Basophil# 0.08 X10^3/uL; Basophil% 0.6 % (0-1); Eosinophil# 0.15 X10^3/uL; Eosinophils% 1.1 % (0-5); Hematocrit 41.1 % (40-54); Hemoglobin 13.6 g/dL (13.0-16.5); Lymphocyte # 1.28 X10^3/ul (0.83-4.51); Lymphocyte % 9.5 % (19-41); Mean Corp Hgb Conc 33.1 g/dL (32-36); Mean Corpuscular Hgb 29.4 pg (27.0-32.0); Mean Corpuscular Volume 88.8 fL (80-94); Mean Platelet Vol. 9.7 fl (6.2-12.0); Monocyte# 0.63 X10^3/uL; Monocyte% 4.7 % (0-10); NRBC Flagged by Analyzer 0 % (0-5); Neutrophil # 11.28 X10^3/uL (2.7-7.7); Neutrophil % 83.6 % (47-70); Platelet Count 244 K/mm3 (150-450); RBC Distribution Width CV 13.8 % (11.6-14.6); Red Blood Count 4.63 M/mm3 (4.6-6.2); White Blood Count 13.5 K/mm3 (4.4-11.0)
--- NOTE | 2025-01-08 00:42 | RAD_ITS ---
PROCEDURE: CHEST 1 VIEW (PORTABLE) 01/08/2025 REASON FOR EXAM: COUGH TECHNIQUE: Frontal view of the chest. 2 total AP portable views to include the entire chest COMPARISON: None available FINDINGS: Mild bilateral lower lung patchy opacity may represent developing infiltrate, possible small airways disease, atypical etiology and less likely pulmonary edema as the pulmonary vascularity appears within limits. Small linear opacity at the left base may represent atelectasis or scar. No evidence of pleural effusion. The cardiac and mediastinal contours appear within limits. Atherosclerotic change of the aortic arch again noted. Right shoulder osteoarthrosis. RAD/Chest 1 View (Portable) IMPRESSION: Mild bilateral lower lung patchy opacity may represent developing infiltrate, p ossible small airways disease, atypical etiology and less likely pulmonary edema as the pulmonary vascularity appears within franco its. Small linear opacity at the left base may represent atelectasis or scar. Reading Location: [id number]
[2025-01-08] MEDS: Ipratropium/Albuterol Sulfate 3 ML AMPUL.NEB INHALATION ×3 (00:44→19:02)
[2025-01-08 00:53] LABS: Magnesium 1.7 mg/dL (1.5-2.2)
[2025-01-08] MEDS: Piperacil/Tazobactam 3.375 GM in 0.9% Normal Saline (50mL MB+) 50 ML IV ×4 (01:49→20:33)
[2025-01-08 01:50] LABS: Anion Gap 12 (5-15); BUN 14 mg/dL (4-19); BUN/Creat Ratio 16.1 RATIO (10-20); Calcium,Total 9.1 mg/dL (7.6-11.0); Carbon Dioxide 22.1 mmol/L (21.0-32.0); Chloride 104 mmol/L (98-108); Creatinine, Serum 0.88 mg/dL (0.70-1.20); EST Glomerular Filtration Rate 85 (>60); Glucose 147 mg/dL (70-99); Potassium 4.2 mmol/L (3.3-5.1); Sodium Level 138 mmol/L (133-145)
--- NOTE | 2025-01-08 02:04 | EX.ED.DYSGE1 ---
HPI History of Present Illness Chief Complaint: Shortness of Breath Informant: patient and family Narrative Narrative: Patient is an 84-year-old male from home with past medical history of hyperlipidemia COPD and coronary artery disease. He states he quit smoking roughly 15 years ago and does not require supplemental oxygen at baseline. He states that towards the middle/end of October he was admitted to the hospital secondary to influenza leading to respiratory distress. He reports when he was discharged he completely recovered. He states he did well for a few months and roughly 2 weeks ago developed return of cough and congestion. He states that this resolved and he thought he was doing better but in the last few days has now had cough and increasing shortness of breath. Secondary to concern for infection he was brought in for evaluation [facility] Medical History COPD (chronic obstructive pulmonary disease) Obesity (BMI 30.0-34.9) Atherosclerosis of coronary artery of [place] heart without angina pectoris Hyperlipidemia Abdominal aortic aneurysm (AAA) BPH (benign prostatic hyperplasia) Arthritis Home Medications ?Medication ?Instructions ?Recorded ?Last Taken ?Type aspirin 81 mg chewable tablet 81 mg PO DAILY@0800 11/30/16 12/27/19 History tamsulosin 0.4 mg capsule 0.4 mg PO DAILY 11/30/16 12/27/19 History finasteride 5 mg tablet (Proscar) 5 mg PO QDAY 12/03/17 12/27/19 History albuterol sulfate 90 mcg/actuation 2 puff inhalation Q4H PRN PRN 01/07/25 Unknown History aerosol inhaler shortness of breath or wheezing carvedilol 12.5 mg tablet 12.5 mg PO Q12.TCU 01/07/25 Unknown History fluticasone fur. 100 mcg-umeclid 1 ea inhalation DAILY 01/07/25 Unknown History 62.5 mcg-vilant 25 mcg inhalat.powder (Trelegy Ellipta) lisinopril 20 mg tablet 20 mg PO DAILY 01/07/25 Unknown History rosuvastatin 40 mg tablet 40 mg PO QHS 01/07/25 Unknown History Allergy/AdvReac Type Severity Reaction Status Date / Time No Known Allergies Allergy Verified 01/07/25 23:40 Family History Mother Heart disease Surgical History History of coronary artery stent placement (2003) Social History (Updated 01/08/25 @ 02:[address] Georgia Valentine MD) household members: spouse Smoking Status: Former smoker quit date: 06/06/14 pack-years: 80 substance use type: does not use ROS ROS ED Constitutional Constitutional ED: Denies chills or fever(s) Eyes Eyes: Denies blurry vision or change in vision ENT ENT ED: Reports rhinorrhea; Denies sore throat Cardiovascular Cardiovascular: Denies chest pain Respiratory/Chest Respiratory/Chest: Reports cough and dyspnea Gastrointestinal Gastrointestinal: Denies abdominal pain, diarrhea, nausea or vomiting Genitourinary Genitourinary ED: Denies dysuria Musculoskeletal Musculoskeletal: Denies myalgias Integumentary Denies rash Neurologic Neurologic: Denies headache(s) Hematologic/Lymphatic Hematologic/Lymphatic: Denies easy bleeding or easy bruising Allergic/Immunologic Allergic/Immunologic ED: Denies mouth swelling or tongue swelling EXAM Physical Exam Const Vital Signs: 01/07/25 23:36 01/07/25 23:43 01/07/25 23:44 Temperature 97.8 F 97.8 F Temperature Source Axillary Axillary Pulse Rate 101 H 96 Respiratory Rate 24 H 23 H Respiratory Effort Short of Breath Respiratory Pattern Blood Pressure 120/85 H 120/85 H Blood Pressure Mean 96 96 Pulse Ox 93 95 Oxygen Delivery Method Nasal Cannula Nasal Cannula Oxygen Flow Rate (L/min) 4 4 01/07/25 23:50 01/08/25 00:00 01/08/25 00:15 Temperature Temperature Source Pulse Rate 93 97 93 Respiratory Rate 27 H 23 H 21 H Respiratory Effort Respiratory Pattern Blood Pressure 137/75 H 125/81 H Blood Pressure Mean 88 95 Pulse Ox 94 93 94 Oxygen Delivery Method Oxygen Flow Rate (L/min) 01/08/25 00:30 01/08/25 00:43 01/08/25 00:45 Temperature 97.8 F Temperature Source Axillary Pulse Rate 92 91 91 Respiratory Rate 23 H 23 H 18 Respiratory Effort Respiratory Pattern Normal Blood Pressure 120/79 143/110 H Blood Pressure Mean 91 121 Pulse Ox 94 95 Oxygen Delivery Method Nasal Cannula Oxygen Flow Rate (L/min) 3 01/08/25 00:45 01/08/25 01:00 01/08/25 01:00 Temperature 98.9 F Temperature Source Oral Pulse Rate 91 87 90 Respiratory Rate 20 H 18 26 H Respiratory Effort Respiratory Pattern Blood Pressure 114/77 117/77 130/85 H Blood Pressure Mean 90 90 100 Pulse Ox 93 95 94 Oxygen Delivery Method Nasal Cannula Oxygen Flow Rate (L/min) 4 01/08/25 01:15 01/08/25 01:30 01/08/25 02:00 Temperature 98.6 F Temperature Source Oral Pulse Rate 90 93 86 Respiratory Rate 34 H 22 H 20 H Respiratory Effort Respiratory Pattern Blood Pressure 143/110 H 117/77 117/45 L Blood Pressure Mean 118 88 69 Pulse Ox 95 94 Oxygen Delivery Method Nasal Cannula Oxygen Flow Rate (L/min) 4 01/08/25 02:03 Temperature 98.7 F Temperature Source Pulse Rate 86 Respiratory Rate 20 H Respiratory Effort Respiratory Pattern Blood Pressure 129/75 H Blood Pressure Mean 93 Pulse Ox 95 Oxygen Delivery Method Oxygen Flow Rate (L/min) Positive well nourished and well developed General Appearance ED: well developed; Negative for pallor HEENT HEENT Narrative: No tongue or lip swelling no oral lesions no airway edema or compromise. There is cobblestoning noted in the posterior pharynx consistent with sinus drainage without secondary findings to suggest infection Eyes PERRL and EOMs intact bilaterally General Eye ED: Negative for scleral icterus Neck supple and no JVD Chest Wall palpation of chest normal Resp normal respiratory effort Resp Narrative: Breath sounds are diminished throughout There is diffuse expiratory wheeze in the upper lobes and rhonchi noted in the bilateral lower lobes Cardio regular rate and regular rhythm Rate: other Other Details: Radial and carotid pulses are equal and symmetric GI normal to inspection, nondistended, normoactive bowel sounds, non-tender, non-distended and no masses GI Narrative: No voluntary guarding or rigidity or pulsatile mass Auscultation: normoactive bowel sounds Palpation: soft Extremity normal to inspection Extremity Narrative: No asymmetric edema no pitting edema negative Homans' sign bilaterally Neuro oriented x3, CN's II-XII intact bilaterally and no sensory deficits noted Sensorium / Orientation: alert Motor Exam: strength 5/5 throughout Psych mental status grossly normal Skin no rashes or lesions noted and no wounds General Skin Exam: Negative for jaundice or pallor MDM MDM MDM Narrative Medical decision making narrative: Patient arrived to the ER afebrile but does not require supplemental oxygen at baseline and his pulse ox was 86 to 88% on room air. With his report of cough and shortness of breath there is concern for viral infection such as COVID versus influenza versus RSV. Patient also could have pneumonia or CHF exacerbation. Secondary to his basic blood work was obtained. White count is elevated at 13.5 with left shift of his neutrophils at 11.3 concerning for infectious process. He is not febrile his blood pressure is normal as well and his lactic acid is technically normal going against sepsis criteria and therefore there is no need for blood culture. Viral swab was negative but chest x-ray did show findings most suggestive of pneumonia. As he was reportedly in the hospital in the middle to end of October I did start with broad-spectrum antibiotics of vancomycin and Zosyn. As he is requiring supplemental oxygen for pulse ox above 90% and does not have oxygen available to him at home I do not feel he is safe for discharge. Therefore the case was discussed with the hospitalist who agrees to accept him for continued care History & Record Review Discussion w/independent historian: Patient and Family Lab Data Attestation: I reviewed the patient's lab results. Labs: Laboratory Results - last 24 hr 01/07/25 23:58 WBC 13.5 H RBC 4.63 Hgb 13.6 Hct 41.1 MCV 88.8 MCH 29.4 MCHC 33.1 RDW Std Deviation 44.0 H RDW Coeff of Jessica 13.8 Plt Count 244 MPV 9.7 Immature Gran % (Auto) 0.500 Neut % (Auto) 83.6 H Lymph % (Auto) 9.5 L Bland % (Auto) 4.7 Eos % (Auto) 1.1 Baso % (Auto) 0.6 Absolute Neuts (auto) 11.3 H Absolute Lymphs (auto) 1.28 Nucleated RBC % 0 Sodium 138 Potassium 4.2 Chloride 104 Carbon Dioxide 22.1 Anion Gap 12 BUN 14 Creatinine 0.88 Estim Creat Clear Calc 63.60 Est GFR (MDRD) Non-Af 85 BUN/Creatinine Ratio 16.1 Glucose 147 H Lactic Acid 2.0 Calcium 9.1 Magnesium 1.7 Radiography Diagnostic Testing: Clinical Impression(s) from Imaging Studies Chest X-Ray 01/08/25 00:42 IMPRESSION: Mild bilateral lower lung patchy opacity may represent developing infiltrate, possible small airways disease, atypical etiology and less likely pulmonary edema as the pulmonary vascularity appears within limits. Small linear opacity at the left base may represent atelectasis or scar. Reading Location: [facility] Chest x-ray as interpreted by the emergency medicine physician reveals hazy opacity in the bilateral lower lobes concerning for pneumonia Discharge Plan Dx/Rx/DC Orders Clinical Impression: Hypoxia, Pneumonia, History of coronary artery stent placement, Hyperlipidemia Disposition Disposition: Acute Care Hospital [facility]
--- NOTE | 2025-01-08 02:05 | PCM.HP.STD ---
HPI - General General Date of Admission: 01/08/25 Date of Service: 01/08/25 Chief Complaint: Dyspnea, productive cough. HPI Narrative The patient is an 84 y/o M w/ PMHx: CAD s/p PCI, HTN, HLD, BPH with obstructive pathology, AAA, Former tobacco use who presents to the [facility] ED on with history of ~ 2 weeks prior onset URI type viral symptoms which then resolved; however, over the last 24 hours patient has had progressively worsening dyspnea, moist productive cough starting earlier in the day prompting EMS call to his home noted to be 88% on room air prompting Solu-Medrol DuoNeb therapy administration per EMS on route. In the ED patient with significant dyspnea at rest with inspiratory and expiratory diffuse wheezing as well as productive intermittent coughing. He notes recent admission within the last 90 days with PNA at [facility] where he had influenza and potentially superimposed bacterial component but uncertain. He notes that 2 weeks previous to current presentation he had fever, chills, nausea, emesis, mildly loose stools, cough, congestion, dyspnea that eventually subsided but never completely improved. Currently in addition to productive cough and dyspnea, fatigue he notes decreased appetite and has had an occasional episode of nausea with emesis. Workup in the ED included T97.8 Axillary, heart rate 101, BP 120/85, respiratory rate 24, 93% on 4 L nasal cannula with most recent repeat vitals heart rate 93, BP 117/77, respiratory rate 20, 95% on 4 L nasal cannula, chest x-ray with mild bilateral lower lung patchy opacities possibly developing infiltrate, less likely pulmonary edema, small linear opacity at the left base possibly development representative of atelectasis versus scar, CBC with WBC 13.5, human 13.6, platelet 244 with left shift, BMP with glucose 147 otherwise unremarkable, magnesium 1.7, lactic acid 2.0, BNP pending upon evaluation of patient, EKG with SR with occasional PAC. In the ED patient administered DuoNeb therapy, Solu-Medrol 125 mg IV x 1, IV vancomycin and IV Zosyn. [facility] Medical History (Updated 01/08/25 @ 02:[address] Georgia Valentine MD) Former tobacco use COPD (chronic obstructive pulmonary disease) Obesity (BMI 30.0-34.9) Atherosclerosis of coronary artery of [place] heart without angina pectoris Hyperlipidemia Abdominal aortic aneurysm (AAA) BPH (benign prostatic hyperplasia) Arthritis Home Medications ?Medication ?Instructions ?Recorded ?Last Taken ?Type aspirin 81 mg chewable tablet 81 mg PO DAILY@0800 11/30/16 12/27/19 History tamsulosin 0.4 mg capsule 0.4 mg PO DAILY 11/30/16 12/27/19 History finasteride 5 mg tablet (Proscar) 5 mg PO QDAY 12/03/17 12/27/19 History albuterol sulfate 90 mcg/actuation 2 puff inhalation Q4H PRN PRN 01/07/25 Unknown History aerosol inhaler shortness of breath or wheezing carvedilol 12.5 mg tablet 12.5 mg PO Q12.TCU 01/07/25 Unknown History fluticasone fur. 100 mcg-umeclid 1 ea inhalation DAILY 01/07/25 Unknown History 62.5 mcg-vilant 25 mcg inhalat.powder (Trelegy Ellipta) lisinopril 20 mg tablet 20 mg PO DAILY 01/07/25 Unknown History rosuvastatin 40 mg tablet 40 mg PO QHS 01/07/25 Unknown History Allergy/AdvReac Type Severity Reaction Status Date / Time No Known Allergies Allergy Verified 01/07/25 23:40 Family History (Updated 01/08/25 @ 02:[address] Georgia Valentine MD) Mother Heart disease CAD (coronary artery disease) Diabetes Hypertension Father Dementia Brain aneurysm Surgical History History of coronary artery stent placement (2003) Social History (Updated 01/08/25 @ 02:[address] Georgia Valentine MD) household members: spouse Smoking Status: Former smoker quit date: 06/06/14 pack-years: 80 alcohol intake: never substance use type: does not use ROS ROS Narrative Admission Review of Systems (for more current presentation, excluding symptoms from 2 weeks previous that abated) CONSTITUTIONAL: No weight loss, fever, chills, + weakness or fatigue. HEENT: Eyes: No visual loss, blurred vision, double vision or yellow sclerae. Ears, Nose, Throat: No hearing loss, sneezing, congestion, runny nose or sore throat. SKIN: No rash or itching, lesions, wounds. CARDIOVASCULAR: No chest pain, chest pressure or chest discomfort, palpitations, edema, orthopnea, syncopal events. RESPIRATORY: + Dyspnea, productive cough, wheezing. No hemoptysis. GASTROINTESTINAL: + anorexia, nausea, vomiting. No diarrhea, abdominal pain, melena, BRBPR. GENITOURINARY: No dysuria, frequency, urgency or retention. NEUROLOGICAL: No headache, dizziness, syncope, paralysis, ataxia, numbness or tingling in the extremities, focal weakness, change in bowel or bladder control, seizure. MUSCULOSKELETAL:+ muscle, back pain, joint pain or stiffness. HEMATOLOGIC: No anemia, bleeding or bruising. LYMPHATICS: No enlarged nodes. No history of splenectomy. PSYCHIATRIC: No history of depression or anxiety. ENDOCRINOLOGIC: No reports of sweating, cold or heat intolerance. No polyuria or polydipsia. ALLERGIES: No history of asthma, hives, eczema or rhinitis. Vital Signs Vital Signs Vital Signs: 01/07/25 23:36 01/07/25 23:43 01/07/25 23:44 Temperature 97.8 F 97.8 F Temperature Source Axillary Axillary Pulse Rate 101 H 96 Respiratory Rate 24 H 23 H Respiratory Effort Short of Breath Respiratory Pattern Blood Pressure 120/85 H 120/85 H Blood Pressure Mean 96 96 Pulse Ox 93 95 Oxygen Delivery Method Nasal Cannula Nasal Cannula Oxygen Flow Rate (L/min) 4 4 01/07/25 23:50 01/08/25 00:00 01/08/25 00:15 Temperature Temperature Source Pulse Rate 93 97 93 Respiratory Rate 27 H 23 H 21 H Respiratory Effort Respiratory Pattern Blood Pressure 137/75 H 125/81 H Blood Pressure Mean 88 95 Pulse Ox 94 93 94 Oxygen Delivery Method Oxygen Flow Rate (L/min) 01/08/25 00:30 01/08/25 00:43 01/08/25 00:45 Temperature 97.8 F Temperature Source Axillary Pulse Rate 92 91 91 Respiratory Rate 23 H 23 H 18 Respiratory Effort Respiratory Pattern Normal Blood Pressure 120/79 143/110 H Blood Pressure Mean 91 121 Pulse Ox 94 95 Oxygen Delivery Method Nasal Cannula Oxygen Flow Rate (L/min) 3 01/08/25 00:45 01/08/25 01:00 01/08/25 01:00 Temperature 98.9 F Temperature Source Oral Pulse Rate 91 87 90 Respiratory Rate 20 H 18 26 H Respiratory Effort Respiratory Pattern Blood Pressure 114/77 117/77 130/85 H Blood Pressure Mean 90 90 100 Pulse Ox 93 95 94 Oxygen Delivery Method Nasal Cannula Oxygen Flow Rate (L/min) 4 01/08/25 01:15 01/08/25 01:30 01/08/25 02:03 Temperature 98.7 F Temperature Source Pulse Rate 90 93 86 Respiratory Rate 34 H 22 H 20 H Respiratory Effort Respiratory Pattern Blood Pressure 143/110 H 117/77 129/75 H Blood Pressure Mean 118 88 93 Pulse Ox 95 95 Oxygen Delivery Method Oxygen Flow Rate (L/min) Weight Weight: 180 lb 12.465 oz Body Mass Index (BMI) 26.6 Physical Exam Narrative Physical Examination: General: Awake, alert, oriented x 3 and cooperative, seated upright in the ED bed, fatigued and ill-appearing. Skin: Normal color, normal turgor, no icterus, no cyanosis except occasional stage ecchymoses,. HEENT: AT/NC, EOMI, PERRLA, mildly dry MM, no carotid bruits or JVD noted. Lungs: Diminished, greater bases, mildly rhonchorous and coarse, mildly increased respiratory rate but no distress, inspiratory and end expiratory wheezes noted. Heart: Regular rate and rhythm; no gallop, rub audible. Abdomen: Soft, NTTP, ND, distant normal BS, no appreciated HSM. Extremities: No cyanosis, clubbing, or edema. Neurological: Patient awake, alert, oriented as noted, cognitive function intact; pupils equally reactive to light and accommodation, cranial nerves gross normal, moving all 4 extremities, no focal deficits, strength moderately to severely globally decreased secondary to acute presentation complaints. Psychiatric: Affect appears fatigued, ill-appearing, no acute evidence of depressive or anxiety feelings. Results Lab / Micro Data 01/07/25 23:58 01/07/25 23:58 Labs: Laboratory Results - last 24 hr 01/07/25 23:58: WBC 13.5 H, RBC 4.63, Hgb 13.6, Hct 41.1, MCV 88.8, MCH 29.4, MCHC 33.1, RDW Std Deviation 44.0 H, RDW Coeff of Jessica 13.8, Plt Count 244, MPV 9.7, Immature Gran % (Auto) 0.500, Neut % (Auto) 83.6 H, Lymph % (Auto) 9.5 L, Hart % (Auto) 4.7, Eos % (Auto) 1.1, Baso % (Auto) 0.6, Absolute Neuts (auto) 11.3 H, Absolute Lymphs (auto) 1.28, Nucleated RBC % 0, Sodium 138, Potassium 4.2, Chloride 104, Carbon Dioxide 22.1, Anion Gap 12, BUN 14, Creatinine 0.88, Estim Creat Clear Calc 63.60, Est GFR (MDRD) Non-Af 85, BUN/Creatinine Ratio 16.1, Glucose 147 H, Lactic Acid 2.0, Calcium 9.1, Magnesium 1.7 Micro: Microbiology 01/08/25 00:02 Mucosa - Nose SARS-CoV-2, Influenza & RSV (PCR) - Final Imaging Radiology Impression Chest X-Ray 01/08/25 00:42 IMPRESSION: Mild bilateral lower lung patchy opacity may represent developing infiltrate, possible small airways disease, atypical etiology and less likely pulmonary edema as the pulmonary vascularity appears within limits. Small linear opacity at the left base may represent atelectasis or scar. Reading Location: [id number] Assessment & Plan Assessment/Plan (1) Hypoxia: (2) Pneumonia: PLAN: Plan The patient is an 84 y/o M w/ PMHx: CAD s/p PCI, HTN, HLD, BPH with obstructive pathology, AAA, Former tobacco use who presents to the [facility] ED on with history of ~ 2 weeks prior onset URI type viral symptoms which then resolved; however, over the last 24 hours patient has had progressively worsening dyspnea, moist productive cough starting earlier in the day prompting EMS call to his home noted to be 88% on room air prompting Solu-Medrol DuoNeb therapy administration per EMS on route. In the ED patient with significant dyspnea at rest with inspiratory and expiratory diffuse wheezing as well as productive intermittent coughing. #1. Acute hypoxia secondary to acute bilateral pneumonia, risk of gram-positive/gram-negative organisms given recent admission and acute on chronic COPD exacerbation, lower suspicion HF exacerbation: Will admit to [facility], maintain on oxygen with wean as tolerated to room air, continue ATC duonebs, PRN albuterol, maintain on IV Solu-Medrol, maintain on IV Zosyn and Vancomycin with MRSA screen requested with de-escalation as able, HOB, IS parameters w/ pending sputum cultures, full respiratory viral panel, COVID PCR and urine antigens. Procalcitonin pending. BNP pending. PT/OT/case management consulted for discharge planning. #2. Hyperglycemia, possibly stress response: Admission glucose 147, will obtain hemoglobin A1c to be cautious. #3. CAD: Status post PCI, noted most recent intervention 12/27/2019 with NAMRATA to the distal LCx and previous to this PCI to the LAD and RCA in 2003, continue aspirin, statin, Coreg, lisinopril home regimen. #4. AAA: Noted history, no imaging noted in the system, most recent cardiology visit noted 05/25/2010, encourage continued outpatient follow-up with vascular surgery as previously arranged. #5. Hypertension: Continue home regimen including lisinopril, Coreg, PRN hydralazine. #6. Hyperlipidemia: Continue home statin therapy. #7. BPH with obstructive pathology: Continue patient home Flomax and finasteride regimen. #8. Former tobacco use: Encourage continued tobacco cessation. #9. DVT prophylaxis: Lovenox. #10. CODE status: Patient HCPOA and living will not in place but he notes his and his son and [id number] would be his medical decision-makers if necessary. Discussed CODE status at length including difference between FULL code, DNR-CCA and DNR-CC status. Following discussions about the differences in these status, requested Full Code status. Advanced Care Planning Face to Face Time: 16 minutes. Charges/Coding Visit Charges Inpatient E&M: 21546 Init Hosp L3 Procedures Hospitalists Procedures: 55720 Advncd Care Plan 30 Min
[2025-01-08 02:17] LABS: Pro- Brain NATRIURETIC PEPTIDE 162 pg/mL (<=1800)
[2025-01-08] MEDS: Vancomycin HCl 1,250 MG in 0.9% Normal Saline (250mL Bag) 250 ML 167 MG IV (02:29)
--- NOTE | 2025-01-08 03:27 | PCM.RX.CS ---
Consult Antibiotic Management Pharmacy has been consulted to manage selected antibiotic: Vancomycin Type of Intervention Type of Consult: New start Labs Labs: Sodium 138 mmol/L (133-145) 01/07/25 23:58 Potassium 4.2 mmol/L (3.3-5.1) 01/07/25 23:58 Chloride 104 mmol/L (98-108) 01/07/25 23:58 Carbon Dioxide 22.1 mmol/L (21.0-32.0) 01/07/25 23:58 Anion Gap 12 (5-15) 01/07/25 23:58 BUN 14 mg/dL (4-19) 01/07/25 23:58 Creatinine 0.88 mg/dL (0.70-1.20) 01/07/25 23:58 Est GFR (MDRD) Non-Af 85 (>60) 01/07/25 23:58 BUN/Creatinine Ratio 16.1 RATIO (10-20) 01/07/25 23:58 Glucose 147 mg/dL (70-99) H 01/07/25 23:58 Microbiology Microbiology: Microbiology 01/08/25 00:02 Mucosa - Nose SARS-CoV-2, Influenza & RSV (PCR) - Final Dosing Weight Weight used for dosin.7 kg Estimated Creatinine Clearance Estimated Creatinine Clearance: 63.6 Goal Trough Goal Trough: 15-20 mcg/mL Pharmacy Plan for Drug Dosing Pharmacy Plan for Drug Dosing: Pharmacy Service will continue to monitor and adjust dosing as required. 1250MG GIVEN IN ER 01/08 @ 0229. START 1000MG Q12H AND DRAW TROUGH PRIOR TO 4TH DOSE Follow-Up Labs Follow-Up Labs: Trough: Vancomycin Date/Time Labs Ordered Labs to be done on [date and time ordered]: 01/09 @ 1400
[2025-01-08] MEDS: Mag Hydrox/Al Hydrox/Simeth 30 ML UDC PO (04:18)
[2025-01-08 04:29] LABS: Reflex Lactate? Y
[2025-01-08] MEDS: Methylprednisolone Sod Succ 40 MG/ML VIAL IV ×3 (05:27→20:33)
[2025-01-08 06:36] LABS: ALB/GLOB Ratio 1.1 RATIO (0.9-2.4); AST(SGOT) 22 U/L (<=37); Alanine Aminotransfer ALT/SGPT 17 U/L (<=46); Albumin, Serum 3.5 g/dL (3.4-4.8); Alkaline Phosphatase 67 U/L (40-129); Anion Gap 13 (5-15); BUN 15 mg/dL (4-19); BUN/Creat Ratio 15.6 RATIO (10-20); Calcium,Total 9.1 mg/dL (7.6-11.0); Carbon Dioxide 19.3 mmol/L (21.0-32.0); Chloride 105 mmol/L (98-108); Creatinine, Serum 0.99 mg/dL (0.70-1.20); EST Glomerular Filtration Rate 76 (>60); Estimated Creatinine Clearance 56.54 ml/min (50-250); Globulin 3.1 g/dL (2.2-4.2); Glucose 183 mg/dL (70-99); Potassium 4.2 mmol/L (3.3-5.1); Protein, Total 6.6 g/dL (5.9-8.4); Sodium Level 137 mmol/L (133-145); Total Bilirubin 0.51 mg/dL (0.00-1.30)
[2025-01-08 07:06] LABS: Absolute Lymphocyte Count 0.95 X10^3/uL (0.83-4.51); Basophil# 0.07 X10^3/uL; Basophil% 0.3 % (0-1); Hematocrit 40.1 % (40-54); Hemoglobin 13.4 g/dL (13.0-16.5); Lymphocyte # 0.95 X10^3/ul (0.83-4.51); Lymphocyte % 4.4 % (19-41); Mean Corp Hgb Conc 33.4 g/dL (32-36); Mean Corpuscular Hgb 29.6 pg (27.0-32.0); Mean Corpuscular Volume 88.5 fL (80-94); Mean Platelet Vol. 9.9 fl (6.2-12.0); Monocyte# 0.36 X10^3/uL; Monocyte% 1.7 % (0-10); NRBC Flagged by Analyzer 0 % (0-5); Neutrophil # 20.03 X10^3/uL (2.7-7.7); Neutrophil % 92.9 % (47-70); POSITIVE DIFFERENTIAL YES; Platelet Count 250 K/mm3 (150-450); RBC Distribution Width CV 13.8 % (11.6-14.6); RBC Distribution Width SD 44.7 fl (35.1-43.9); Red Blood Count 4.53 M/mm3 (4.6-6.2); White Blood Count 21.6 K/mm3 (4.4-11.0)
[2025-01-08 07:19] LABS: Differential Indicated SCAN CRITERIA MET
--- NOTE | 2025-01-08 07:31 | PCM.PN.HOSP ---
Reason for Visit Reason for Visit: Diagnoses Pneumonia, unspecified organism (01/08/25) Hypoxemia (01/08/25) Objective Data Objective Data Vital Signs: Vital Signs Temp Pulse Resp BP Pulse Ox O2 Del Method O2 Flow Rate 97.8 F 88 20 H 96/63 97 Nasal Cannula 2 01/08/25 04:22 01/08/25 04:22 01/08/25 04:22 01/08/25 04:22 01/08/25 04:22 01/08/25 04:22 01/08/25 04:22 Oxygen Flow Rate (L/min) 2 Oxygen Delivery Method Nasal Cannula Weight: 173 lb 8.061 oz Body Mass Index (BMI) 25.7 Intake & Output: Intake and Output for Last 24 Hours 01/06/25 01/07/25 01/08/25 23:59 23:59 23:59 Intake Total 0 / 0 325 / 325 Balance 0 / 0 325 / 325 Lab / Micro Data 01/08/25 04:34 01/08/25 04:34 Labs: Laboratory Results - last 24 hr 01/07/25 23:58: WBC 13.5 H, RBC 4.63, Hgb 13.6, Hct 41.1, MCV 88.8, MCH 29.4, MCHC 33.1, RDW Std Deviation 44.0 H, RDW Coeff of Jessica 13.8, Plt Count 244, MPV 9.7, Immature Gran % (Auto) 0.500, Neut % (Auto) 83.6 H, Lymph % (Auto) 9.5 L, Woodward % (Auto) 4.7, Eos % (Auto) 1.1, Baso % (Auto) 0.6, Absolute Neuts (auto) 11.3 H, Absolute Lymphs (auto) 1.28, Nucleated RBC % 0, Sodium 138, Potassium 4.2, Chloride 104, Carbon Dioxide 22.1, Anion Gap 12, BUN 14, Creatinine 0.88, Estim Creat Clear Calc 63.60, Est GFR (MDRD) Non-Af 85, BUN/Creatinine Ratio 16.1, Glucose 147 H, Lactic Acid 2.0, Calcium 9.1, Magnesium 1.7, NT pro BNP II 162 01/08/25 04:34: WBC 21.6 H, RBC 4.53 L, Hgb 13.4, Hct 40.1, MCV 88.5, MCH 29.6, MCHC 33.4, RDW Std Deviation 44.7 H, RDW Coeff of Jessica 13.8, Plt Count 250, MPV 9.9, Immature Gran % (Auto) 0.700, Neut % (Auto) 92.9 H, Lymph % (Auto) 4.4 L, Woodward % (Auto) 1.7, Eos % (Auto) 0.0, Baso % (Auto) 0.3, Absolute Neuts (auto) 20.0 H, Absolute Lymphs (auto) 0.95, Nucleated RBC % 0, Sodium 137, Potassium 4.2, Chloride 105, Carbon Dioxide 19.3 L, Anion Gap 13, BUN 15, Creatinine 0.99, Estim Creat Clear Calc 56.54, Est GFR (MDRD) Non-Af 76, BUN/Creatinine Ratio 15.6, Glucose 183 H, Calcium 9.1, Total Bilirubin 0.51, AST 22, ALT 17, Alkaline Phosphatase 67, Total Protein 6.6, Albumin 3.5, Globulin 3.1, Albumin/Globulin Ratio 1.1 Micro: Microbiology 01/08/25 03:30 Nasal Secretion MRSA (PCR) - Final 01/08/25 03:06 Mucosa - Nasopharyngeal Coronavirus COVID-19 PCR - Final 01/08/25 03:06 Mucosa - Nasopharyngeal Respiratory Panel (PCR) - Final 01/08/25 00:02 Mucosa - Nose SARS-CoV-2, Influenza & RSV (PCR) - Final Radiography Diagnostic Testing: Radiology Impression Chest X-Ray 01/08/25 00:42 IMPRESSION: Mild bilateral lower lung patchy opacity may represent developing infiltrate, possible small airways disease, atypical etiology and less likely pulmonary edema as the pulmonary vascularity appears within limits. Small linear opacity at the left base may represent atelectasis or scar. Reading Location: [id number] Physical Exam Narrative Seen and examined. Patient was admitted for 3 days in last week of October 2024 at outside hospital. Since then he had 1 or 2 instances of fever cough in the interim 2 weeks period. This time he came with yellowish productive thick cough along with shortness of breath for last 2 days. History of COPD. 80 pack years of smoking. Quit in 06/25/2020 Physical exam General: Alert, Oriented x3, Cooperative HEENT: Very hard of hearing bilateral. Atraumatic, PERRLA, EOMI, Normocephalic Oral: No Gingival or Mucosal Lesions/ Ulcerations Neck: Supple, No JVD, Negative Carotid Bruits Chest wall/Lungs: Air entry severely diminished in all lung paige. Mild bilateral expiratory rhonchi. Cardiovascular: Sinus rhythm, Normal S1, Normal S2, no murmur gallop or rub Abdomen: Bowel Sounds Present, Soft, Non Tender, Non-Distended : No dysuria. No renal angle tenderness. No suprapubic tenderness. Extremities: No edema, Capillary Refill Less than 3 Seconds Skin: No rashes, No breakdown Musculoskeletal: No Tenderness to Palpation of Joints or Extremities Neurological: Cranial nerves II-XII grossly intact, DTR 2+/4. No acute focal neurological deficit. Psych/Mental Status: Normal Affect, Appropriate. Assessment & Plan Assessment/Plan (1) Hypoxia: (2) Pneumonia: PLAN: Plan The patient is an 84 y/o M admitted with shortness of breath, productive cough with chest congestion for about 2 weeks but got better but again similar symptoms with increasing shortness of breath for last few days #1. Acute hypoxia with COPD exacerbation secondary to acute bilateral pneumonia: Patient is being admitted to [facility] floor. Was empirically started on IV vancomycin and Zosyn but vancomycin discontinued as MRSA nasal screen is negative. Patient is being managed on scheduled bronchodilator, IV Solu-Medrol, Mucinex, incentive spirometry and Pep. Leukocytosis, 21.6K, mainly neutrophil. Respiratory panel and COVID-19 PCR negative. MRSA PCR negative. Chest x-ray PA and lateral initially reviewed and shows bilateral lower lung patchy opacity suggestive of developing infiltrate in possible small airway disease. Small left lung base atelectasis. No evidence of pleural effusion. #2. Hyperglycemia, possibly stress response: Admission glucose 147, A1c 5.5%. Prediabetes and diabetes mellitus ruled out #3. CAD: Status post PCI, noted most recent intervention 12/27/2019 with NAMRATA to the distal LCx and previous to this PCI to the LAD and RCA in 2003, continue aspirin, statin, Coreg, lisinopril home regimen. #4. AAA: most recent cardiology visit noted 05/25/2010, outpatient follow-up with driver license agent #5. Hypertension: BP systolic in 99 therefore lisinopril dose decreased with holding parameters. Continue carvedilol with holding parameters. #6. Hyperlipidemia: Continue home statin therapy. #7. BPH with obstructive pathology: Continue patient home Flomax and finasteride regimen. #8. Former tobacco use: Encourage continued tobacco cessation. #9. DVT prophylaxis: Lovenox. #10. CODE status: Patient HCPOA and living will not in place but he notes his and his son and [id number] would be his medical decision-makers if necessary. Discussed CODE status at length including difference between FULL code, DNR-CCA and DNR-CC status. Microbiology Past 72 Hours 01/08/25 07:25 Urine, Clean Catch Legionella Antigen - Final 01/08/25 07:25 Urine, Clean Catch Streptococcus pneumoniae Antigen (M - Final 01/08/25 03:30 Nasal Secretion MRSA (PCR) - Final 01/08/25 03:06 Mucosa - Nasopharyngeal Coronavirus COVID-19 PCR - Final 01/08/25 03:06 Mucosa - Nasopharyngeal Respiratory Panel (PCR) - Final 01/08/25 00:02 Mucosa - Nose SARS-CoV-2, Influenza & RSV (PCR) - Final Laboratory Results 01/07/25 23:58: WBC 13.5 H, RBC 4.63, Hgb 13.6, Hct 41.1, MCV 88.8, MCH 29.4, MCHC 33.1, RDW Std Deviation 44.0 H, RDW Coeff of Jessica 13.8, Plt Count 244, MPV 9.7, Immature Gran % (Auto) 0.500, Neut % (Auto) 83.6 H, Lymph % (Auto) 9.5 L, Woodward % (Auto) 4.7, Eos % (Auto) 1.1, Baso % (Auto) 0.6, Absolute Neuts (auto) 11.3 H, Absolute Lymphs (auto) 1.28, Nucleated RBC % 0, Sodium 138, Potassium 4.2, Chloride 104, Carbon Dioxide 22.1, Anion Gap 12, BUN 14, Creatinine 0.88, Estim Creat Clear Calc 63.60, Est GFR (MDRD) Non-Af 85, BUN/Creatinine Ratio 16.1, Glucose 147 H, Lactic Acid 2.0, Calcium 9.1, Magnesium 1.7, NT pro BNP II 162 01/08/25 04:34: WBC 21.6 H, RBC 4.53 L, Hgb 13.4, Hct 40.1, MCV 88.5, MCH 29.6, MCHC 33.4, RDW Std Deviation 44.7 H, RDW Coeff of Jessica 13.8, Plt Count 250, MPV 9.9, Immature Gran % (Auto) 0.700, Neut % (Auto) 92.9 H, Lymph % (Auto) 4.4 L, Woodward % (Auto) 1.7, Eos % (Auto) 0.0, Baso % (Auto) 0.3, Absolute Neuts (auto) 20.0 H, Absolute Lymphs (auto) 0.95, Nucleated RBC % 0, Platelet Estimate A, Sodium 137, Potassium 4.2, Chloride 105, Carbon Dioxide 19.3 L, Anion Gap 13, BUN 15, Creatinine 0.99, Estim Creat Clear Calc 56.54, Est GFR (MDRD) Non-Af 76, BUN/Creatinine Ratio 15.6, Glucose 183 H, Hemoglobin A1c 5.5 L, Calcium 9.1, Total Bilirubin 0.51, AST 22, ALT 17, Alkaline Phosphatase 67, Total Protein 6.6, Albumin 3.5, Globulin 3.1, Albumin/Globulin Ratio 1.1, Procalcitonin 0.25 H 01/08/25 05:38: Lactic Acid 2.1 H Charges/Coding Visit Charges Inpatient E&M: 94229 Subs Hosp L2
[2025-01-08 08:15] LABS: Lactic Acid 2.1 mmol/L (0.0-2.0)
[2025-01-08 08:23] LABS: Procalcitonin 0.25 ng/mL (<=0.10)
[2025-01-08] MEDS: Finasteride 5 MG Tablet PO (08:28)
[2025-01-08] MEDS: Enoxaparin 40 MG/0.4 ML Syringe SC (08:28)
[2025-01-08] MEDS: Lisinopril 20 MG Tablet PO (08:28)
[2025-01-08] MEDS: Carvedilol 12.5 MG Tablet PO (08:29)
[2025-01-08] MEDS: Tamsulosin HCl 0.4 MG Capsule PO (08:29)
[2025-01-08] MEDS: Ensure Plus High Protein 120 ML LIQUID PO ×3 (08:29→17:40)
[2025-01-08] MEDS: Aspirin 81 MG TAB.CHEW PO (08:29)
[2025-01-08 11:43] LABS: Hemoglobin A1c 5.5 % (<=5.6)
--- NOTE | 2025-01-08 11:55 | CASEMGMT ---
PAULA RING Face to Face with patient for initial transition planning/care coordination assessment. RN CM introduced self and role at [facility]. Patient sitting in chair, alert and oriented, family at bedside. Patient willing to participate in assessment and is able to answer all questions appropriately. Care providers, pharmacy, and demographics verified. Strata: 1 PCP: Shanthi Specialists: Niru, magnetic tape composer operator; Rod Figueroa, clinical statistical programmer [facility]erred Pharmacy: [facility] Insurance: [employer] Prescription Benefit: yes Living Will/HPOA: none LNOK: Living Arrangements: Patient lives with in a mobile home with ramp to enter. Patient is independent at home. Transportation: self, DME/HHC: Patient has shower chair, cane, walker, pulse ox at home. No previous HHC or SNF. Will monitor for home oxygen, prefers [employer]. Green sheet on chart Patient wishes to discharge home, denies need for home health at this time. Patient states he has no further needs or concerns at this time. CM to follow for discharge planning needs that may arise. Disposition Plan: Patient to discharge home with family support and follow-up plans in place. Will monitor for home oxygen. Karrie EM, RN, CM
[2025-01-08 12:11] LABS: Platelet Estimate A (ADEQ)
[2025-01-08] MEDS: guaiFENesin/D-Methorphan TAB.SR.12H 2 TABLET PO ×2 (14:57→20:33)
[2025-01-08 18:02] LABS: Bedside Glucose 152 mg/dL (74-106)
[2025-01-08] MEDS: Atorvastatin Calcium 80 MG Tablet PO (20:32)
[2025-01-08] MEDS: Senna/Docusate Sodium 1 Tablet 2 TABLET PO (20:33)
[2025-01-09] VITALS (10 sets, daily range): BP systolic 99–129; BP diastolic 71–88; PULSE 70–88; RESP 17–18; TEMP 36.4–36.6; O2SAT 92–93; BMI 25.8
[2025-01-09] MEDS: Calcium Carbonate 500 MG Tablet PO (01:45)
[2025-01-09] MEDS: Ipratropium/Albuterol Sulfate 3 ML AMPUL.NEB INHALATION ×4 (01:55→19:48)
[2025-01-09] MEDS: Piperacil/Tazobactam 3.375 GM in 0.9% Normal Saline (50mL MB+) 50 ML IV (06:22)
[2025-01-09] MEDS: Methylprednisolone Sod Succ 40 MG/ML VIAL IV ×3 (06:22→20:42)
[2025-01-09 08:33] LABS: Absolute Neutrophil Count 21.2 X10^3/uL (2.0-7.7); Basophil# 0.03 X10^3/uL; Basophil% 0.1 % (0-1); Hematocrit 34.5 % (40-54); Hemoglobin 11.4 g/dL (13.0-16.5); Lymphocyte % 5.1 % (19-41); Mean Corpuscular Hgb 29.2 pg (27.0-32.0); Mean Corpuscular Volume 88.5 fL (80-94); Mean Platelet Vol. 10.2 fl (6.2-12.0); Monocyte# 0.73 X10^3/uL; Monocyte% 3.1 % (0-10); NRBC Flagged by Analyzer 0 % (0-5); Neutrophil # 21.19 X10^3/uL (2.7-7.7); Neutrophil % 90.9 % (47-70); POSITIVE DIFFERENTIAL YES; Platelet Count 238 K/mm3 (150-450); RBC Distribution Width CV 14.3 % (11.6-14.6); RBC Distribution Width SD 45.7 fl (35.1-43.9); White Blood Count 23.3 K/mm3 (4.4-11.0)
[2025-01-09 08:43] LABS: Differential Indicated SCAN CRITERIA MET
[2025-01-09] MEDS: Aspirin 81 MG TAB.CHEW PO (08:50)
--- NOTE | 2025-01-09 09:01 | PN.HOSP_ITS ---
Reason for Visit Reason for Visit: Diagnoses Pneumonia, unspecified organism (01/08/25) Hypoxemia (01/08/25) Objective Data Objective Data Vital Signs: Vital Signs Temp Pulse Resp BP Pulse Ox O2 Del Method O2 Flow Rate 98 F 86 18 99/76 92 Room Air 2 01/09/25 08:00 01/09/25 08:30 01/09/25 08:30 01/09/25 08:00 01/09/25 08:30 01/09/25 08:30 01/08/25 04:22 Oxygen Flow Rate (L/min) 2 Oxygen Delivery Method Room Air Weight: 174 lb 9.698 oz Body Mass Index (BMI) 25.8 Intake & Output: Intake and Output for Last 24 Hours 01/07/25 01/08/25 01/09/25 23:59 23:59 23:59 Intake Total 0 / 0 1145 / 1145 50 / 50 Balance 0 / 0 1145 / 1145 50 / 50 Lab / Micro Data 01/09/25 07:55 01/09/25 07:55 Labs: Laboratory Results - last 24 hr 01/08/25 04:34: Platelet Estimate A, Hemoglobin A1c 5.5 L 01/08/25 16:45: POC Glucose 152 H 01/09/25 07:55: WBC 23.3 H, RBC 3.90 L, Hgb 11.4 L, Hct 34.5 L, MCV 88.5, MCH 29.2, MCHC 33.0, RDW Std Deviation 45.7 H, RDW Coeff of Jessica 14.3, Plt Count 238, MPV 10.2, Immature Gran % (Auto) 0.800, Neut % (Auto) 90.9 H, Lymph % (Auto) 5.1 L, [place] % (Auto) 3.1, Eos % (Auto) 0.0, Baso % (Auto) 0.1, Absolute Neuts (auto) 21.2 H, Absolute Lymphs (auto) 1.20, Nucleated RBC % 0 Micro: Microbiology 01/08/25 07:25 Urine, Clean Catch Legionella Antigen - Final 01/08/25 07:25 Urine, Clean Catch Streptococcus pneumoniae Antigen (M - Final 01/08/25 03:30 Nasal Secretion MRSA (PCR) - Final 01/08/25 03:06 Mucosa - Nasopharyngeal Coronavirus COVID-19 PCR - Final 01/08/25 03:06 Mucosa - Nasopharyngeal Respiratory Panel (PCR) - Final 01/08/25 00:02 Mucosa - Nose SARS-CoV-2, Influenza & RSV (PCR) - Final Physical Exam Narrative Seen and examined. Complaining of mucus stuck in the throat, chest congestion. Not able to cough out. Discussed with respiratory therapist for Mucomyst inhalation and deep suctioning. Patient wanted to go home but advised to stay 1 more day. Patient was admitted for 3 days in last week of October 2024 at outside hospital. Since then he had 1 or 2 instances of fever cough in the interim 2 weeks period. This time he came with yellowish productive thick cough along with shortness of breath for last 2 days. History of COPD. 80 pack years of smoking. Quit in 06/25/2020 Physical exam General: Alert, Oriented x3, Cooperative HEENT: Very hard of hearing bilateral. Atraumatic, PERRLA, EOMI, Normocephalic Oral: No Gingival or Mucosal Lesions/ Ulcerations Neck: Supple, No JVD, Negative Carotid Bruits Chest wall/Lungs: Air entry severely diminished in all lung paige. Mild bilateral expiratory rhonchi and coarse crepitation. Cardiovascular: Sinus rhythm, Normal S1, Normal S2, no murmur gallop or rub Abdomen: Bowel Sounds Present, Soft, Non Tender, Non-Distended : No dysuria. No renal angle tenderness. No suprapubic tenderness. Extremities: No edema, Capillary Refill Less than 3 Seconds Skin: No rashes, No breakdown Musculoskeletal: No Tenderness to Palpation of Joints or Extremities Neurological: Cranial nerves II-XII grossly intact, DTR 2+/4. No acute focal neurological deficit. Psych/Mental Status: Normal Affect, Appropriate. Assessment & Plan Assessment/Plan (1) Hypoxia: (2) Pneumonia: PLAN: Plan The patient is an 84 y/o M admitted with shortness of breath, productive cough with chest congestion for about 2 weeks but got better but again similar symptoms with increasing shortness of breath for last few days #1. Acute hypoxia with COPD exacerbation secondary to acute bilateral pneumonia: Patient is being admitted to [facility] floor. Was empirically started on IV vancomycin and Zosyn but vancomycin discontinued as MRSA nasal screen is negative. Patient is being managed on scheduled bronchodilator, IV Solu-Medrol, Mucinex, incentive spirometry and Pep. Leukocytosis, 21.6K, mainly neutrophil. Respiratory panel and COVID-19 PCR negative. MRSA PCR negative. Chest x-ray PA and lateral initially reviewed and shows bilateral lower lung patchy opacity suggestive of developing infiltrate in possible small airway disease. Small left lung base atelectasis. No evidence of pleural effusion. 01/09: No fever. BP on lower side about 100 systolic. On room air. Severe chest congestion, Mucomyst added along with DuoNeb. Leukocytosis showing increase but probably due to IV Solu-Medrol. Change Zosyn to IV ceftriaxone, narrow down the antibiotic. Azithromycin added for COPD exacerbation and pneumonia #2. Hyperglycemia, possibly stress response: Admission glucose 147, A1c 5.5%. Prediabetes and diabetes mellitus ruled out #3. CAD: Status post PCI, noted most recent intervention 12/27/2019 with NAMRATA to the distal LCx and previous to this PCI to the LAD and RCA in 2003, continue aspirin, statin, Coreg, lisinopril home regimen. #4. AAA: most recent cardiology visit noted 05/25/2010, outpatient follow-up with career placement specialist #5. Hypertension: BP systolic in 99 therefore lisinopril dose decreased with holding parameters. Continue carvedilol with holding parameters. #6. Hyperlipidemia: Continue home statin therapy. #7. BPH with obstructive pathology: Continue patient home Flomax and finasteride regimen. #8. Former tobacco use: Encourage continued tobacco cessation. #9. DVT prophylaxis: Lovenox. #10. CODE status: Patient HCPOA and living will not in place but he notes his and his son and [id number] would be his medical decision-makers if necessary. Discussed CODE status at length including difference between FULL code, DNR-CCA and DNR-CC status. Microbiology Past 72 Hours 01/08/25 07:25 Urine, Clean Catch Legionella Antigen - Final 01/08/25 07:25 Urine, Clean Catch Streptococcus pneumoniae Antigen (M - Final 01/08/25 03:30 Nasal Secretion MRSA (PCR) - Final 01/08/25 03:06 Mucosa - Nasopharyngeal Coronavirus COVID-19 PCR - Final 01/08/25 03:06 Mucosa - Nasopharyngeal Respiratory Panel (PCR) - Final 01/08/25 00:02 Mucosa - Nose SARS-CoV-2, Influenza & RSV (PCR) - Final Laboratory Results 01/08/25 16:45: POC Glucose 152 H 01/09/25 07:55: WBC 23.3 H, RBC 3.90 L, Hgb 11.4 L, Hct 34.5 L, MCV 88.5, MCH 29.2, MCHC 33.0, RDW Std Deviation 45.7 H, RDW Coeff of Jessica 14.3, Plt Count 238, MPV 10.2, Immature Gran % (Auto) 0.800, Neut % (Auto) 90.9 H, Lymph % (Auto) 5.1 L, [place] % (Auto) 3.1, Eos % (Auto) 0.0, Baso % (Auto) 0.1, Absolute Neuts (auto) 21.2 H, Absolute Lymphs (auto) 1.20, Nucleated RBC % 0, Platelet Estimate A, Sodium 137, Potassium 4.5, Chloride 105, Carbon Dioxide 20.1 L, Anion Gap 12, B UN 27 H, Creatinine 1.16, Estim Creat Clear Calc 48.25 L, Est GFR (MDRD) Non-Af 62, BUN/Creatinine Ratio 23.4 H, Glucose 146 H, Calcium 9.4 Charges/Coding Visit Charges Inpatient E&M: 99115 Subs Hosp L2
[2025-01-09 09:15] LABS: Platelet Estimate A (ADEQ)
[2025-01-09 09:34] LABS: Anion Gap 12 (5-15); BUN 27 mg/dL (4-19); BUN/Creat Ratio 23.4 RATIO (10-20); Calcium,Total 9.4 mg/dL (7.6-11.0); Carbon Dioxide 20.1 mmol/L (21.0-32.0); Chloride 105 mmol/L (98-108); Creatinine, Serum 1.16 mg/dL (0.70-1.20); EST Glomerular Filtration Rate 62 (>60); Estimated Creatinine Clearance 48.25 ml/min (50-250); Glucose 146 mg/dL (70-99); Potassium 4.5 mmol/L (3.3-5.1); Sodium Level 137 mmol/L (133-145)
[2025-01-09] MEDS: Enoxaparin 40 MG/0.4 ML Syringe SC (11:34)
[2025-01-09] MEDS: guaiFENesin/D-Methorphan TAB.SR.12H 2 TABLET PO ×2 (11:34→20:42)
[2025-01-09] MEDS: Carvedilol 12.5 MG Tablet PO ×2 (11:34→20:42)
[2025-01-09] MEDS: Tamsulosin HCl 0.4 MG Capsule PO (11:34)
[2025-01-09] MEDS: Finasteride 5 MG Tablet PO (11:35)
[2025-01-09] MEDS: Lisinopril 10 MG Tablet PO (11:36)
[2025-01-09] MEDS: Azithromycin 250 MG Tablet 500 MG PO (14:26)
[2025-01-09] MEDS: Ceftriaxone 1 GM/50 ML BAG IV (14:26)
[2025-01-09] MEDS: Acetylcysteine 800 MG/4 ML VIAL.NEB. INHALATION (15:02)
[2025-01-09] MEDS: Atorvastatin Calcium 80 MG Tablet PO (20:42)
[2025-01-10 04:45] VITALS: BP 111/69; PULSE 62; RESP 18; TEMP 36.5; O2SAT 93
[2025-01-10] MEDS: Methylprednisolone Sod Succ 40 MG/ML VIAL IV ×3 (04:46→21:06)
[2025-01-10 05:09] LABS: Absolute Lymphocyte Count 0.95 X10^3/uL (0.83-4.51); Absolute Neutrophil Count 18.8 X10^3/uL (2.0-7.7); Basophil# 0.03 X10^3/uL; Basophil% 0.1 % (0-1); Hematocrit 34.3 % (40-54); Hemoglobin 11.4 g/dL (13.0-16.5); Lymphocyte # 0.95 X10^3/ul (0.83-4.51); Lymphocyte % 4.6 % (19-41); Mean Corp Hgb Conc 33.2 g/dL (32-36); Mean Corpuscular Hgb 29.3 pg (27.0-32.0); Mean Corpuscular Volume 88.2 fL (80-94); Monocyte# 0.72 X10^3/uL; Monocyte% 3.5 % (0-10); NRBC Flagged by Analyzer 0 % (0-5); Neutrophil # 18.83 X10^3/uL (2.7-7.7); Neutrophil % 90.3 % (47-70); Platelet Count 263 K/mm3 (150-450); RBC Distribution Width CV 14.2 % (11.6-14.6); RBC Distribution Width SD 45.5 fl (35.1-43.9); Red Blood Count 3.89 M/mm3 (4.6-6.2); White Blood Count 20.9 K/mm3 (4.4-11.0)
[2025-01-10 05:49] LABS: Anion Gap 9 (5-15); BUN 21 mg/dL (4-19); BUN/Creat Ratio 23.4 RATIO (10-20); Calcium,Total 9.1 mg/dL (7.6-11.0); Carbon Dioxide 21.4 mmol/L (21.0-32.0); Chloride 107 mmol/L (98-108); Creatinine, Serum 0.88 mg/dL (0.70-1.20); EST Glomerular Filtration Rate 85 (>60); Glucose 128 mg/dL (70-99); Potassium 4.6 mmol/L (3.3-5.1); Sodium Level 137 mmol/L (133-145)
[2025-01-10 06:00] VITALS: BMI 25.9
[2025-01-10 07:11] VITALS: PULSE 86; RESP 18; O2SAT 91
[2025-01-10] MEDS: Ipratropium/Albuterol Sulfate 3 ML AMPUL.NEB INHALATION ×3 (07:11→15:32)
[2025-01-10] MEDS: Acetylcysteine 800 MG/4 ML VIAL.NEB. INHALATION ×2 (07:11→15:32)
[2025-01-10 08:00] VITALS: BP 138/87; PULSE 73; RESP 20; TEMP 36.4; O2SAT 92
[2025-01-10] MEDS: Tamsulosin HCl 0.4 MG Capsule PO (08:05)
[2025-01-10] MEDS: Aspirin 81 MG TAB.CHEW PO (08:05)
[2025-01-10] MEDS: Finasteride 5 MG Tablet PO (08:05)
[2025-01-10] MEDS: Lisinopril 10 MG Tablet PO (08:05)
[2025-01-10] MEDS: Carvedilol 12.5 MG Tablet PO ×2 (08:05→21:06)
[2025-01-10] MEDS: Enoxaparin 40 MG/0.4 ML Syringe SC (08:05)
[2025-01-10] MEDS: Azithromycin 250 MG Tablet 500 MG PO (08:05)
[2025-01-10] MEDS: guaiFENesin/D-Methorphan TAB.SR.12H 2 TABLET PO ×2 (09:42→21:06)
[2025-01-10] MEDS: Ceftriaxone 1 GM/50 ML BAG IV (09:42)
[2025-01-10] MEDS: 0.9% Saline Lock 10 ML Syringe IV ×2 (09:42→21:06)
[2025-01-10 11:32] VITALS: PULSE 76; RESP 16; O2SAT 93
--- NOTE | 2025-01-10 12:55 | CHAPLAIN ---
Type of Pastoral Visit _x__ Initial Visit ___ Follow-up Visit ___ On-call Visit ___ General Patient Visit ___ Spiritual Assessment ___ Family Conference ___ Bereavement ___ Rapid Response ___ Code Blue ___ Other (describe below) Pastoral Care Referral From _x__ Patient ___ Family ___ Nurse ___ Physician ___ Manager Urology ___ Interpretive Program Coordinator ___ Other (describe below) Sacrament/Intervention _x__ Active listening ___ Anointing ___ Jew ___ Bereavement ___ Communion ___ Renetta exploration ___ ___ Life review _x__ Prayer ___ Reconciliation ___ Sacrament of Sick _x__ Supportive presence ___ Wedding ___ Other (describe below) Pastoral Comments 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
[2025-01-10 14:43] VITALS: BP 129/72; PULSE 66; RESP 18; TEMP 36.6; O2SAT 94
--- NOTE | 2025-01-10 15:29 | PN.HOSP_ITS ---
Reason for Visit Reason for Visit: Diagnoses Pneumonia, unspecified organism (01/08/25) Hypoxemia (01/08/25) Subjective Subjective Patient progressively feeling better but is still fairly short of breath, has chest congestion but difficulty producing sputum Objective Data Objective Data Vital Signs: Vital Signs Temp Pulse Resp BP Pulse Ox O2 Del Method O2 Flow Rate 97.8 F 66 18 129/72 H 94 Room Air 2 01/10/25 14:43 01/10/25 14:43 01/10/25 14:43 01/10/25 14:43 01/10/25 14:43 01/10/25 14:43 01/08/25 04:22 Oxygen Flow Rate (L/min) 2 Oxygen Delivery Method Room Air Weight: 79.3 kg Body Mass Index (BMI) 25.9 Intake & Output: Intake and Output for Last 24 Hours 01/08/25 01/09/25 01/10/25 23:59 23:59 23:59 Intake Total 1145 / 1145 950 / 950 50 / 50 Output Total 500 / 500 Balance 1145 / 1145 450 / 450 50 / 50 Lab / Micro Data 01/10/25 04:40 01/10/25 04:40 Labs: Laboratory Results - last 24 hr 01/10/25 04:40: WBC 20.9 H, RBC 3.89 L, Hgb 11.4 L, Hct 34.3 L, MCV 88.2, MCH 29.3, MCHC 33.2, RDW Std Deviation 45.5 H, RDW Coeff of Jessica 14.2, Plt Count 263, MPV 10.0, Immature Gran % (Auto) 1.500 H, Neut % (Auto) 90.3 H, Lymph % (Auto) 4.6 L, [place] % (Auto) 3.5, Eos % (Auto) 0.0, Baso % (Auto) 0.1, Absolute Neuts (auto) 18.8 H, Absolute Lymphs (auto) 0.95, Nucleated RBC % 0, Sodium 137, Potassium 4.6, Chloride 107, Carbon Dioxide 21.4, Anion Gap 9, BUN 21 H, Creatinine 0.88, Estim Creat Clear Calc 63.60, Est GFR (MDRD) Non-Af 85, B UN/Creatinine Ratio 23.4 H, Glucose 128 H, Calcium 9.1 Micro: Microbiology 01/08/25 08:10 Sputum, Expectorated/Coughed Gram Stain - Final 01/08/25 08:10 Sputum, Expectorated/Coughed Respiratory Culture - Final Haemophilus influenzae 01/08/25 07:25 Urine, Clean Catch Legionella Antigen - Final 01/08/25 07:25 Urine, Clean Catch Streptococcus pneumoniae Antigen (M - Final 01/08/25 03:30 Nasal Secretion MRSA (PCR) - Final 01/08/25 03:06 Mucosa - Nasopharyngeal Coronavirus COVID-19 PCR - Final 01/08/25 03:06 Mucosa - Nasopharyngeal Respiratory Panel (PCR) - Final 01/08/25 00:02 Mucosa - Nose SARS-CoV-2, Influenza & RSV (PCR) - Final Physical Exam Narrative General: Alert, oriented, no apparent distress HEENT: Atraumatic, normocephalic Eyes: Anicteric, normal conjunctiva, extraocular movements grossly intact Neck: Supple Respiratory: Very faintly coarse at the bases, seems to have a little bit of shortness of breath with conversation but no overt respiratory distress Cardiovascular: Regular rate GI: Soft, nontender, nondistended Extremities: No edema Musculoskeletal: Moving all extremities Neuro: No overt focal neurological deficits Skin: No rashes appreciated Psych: Cooperative Assessment & Plan Assessment/Plan (1) Hypoxia: (2) Pneumonia: PLAN: Plan # Acute hypoxia secondary to haemophilus influenza pneumonia and COPD exacerbation ? Patient presented hypoxic and chest x-ray suggestive of pneumonia - Sputum culture growing haemophilus influenza, patient on Rocephin ? Anticipate likely DC home tomorrow if patient continues improving -Will continue DuoNebs and steroids at this time #Chronic BPH with obstruction -Continue home medications # History of coronary artery disease - Continue aspirin, statin, beta-miles -History of stent placement #Hypertension - Continue carvedilol and lisinopril #DVT ppx: Lovenox subcu Meenu Dixon MD Charges/Coding Visit Charges Inpatient E&M: 09732 Subs Hosp L1
[2025-01-10 21:03] VITALS: BP 111/67; PULSE 77; RESP 18; TEMP 36.6; O2SAT 93
[2025-01-10] MEDS: Atorvastatin Calcium 80 MG Tablet PO (21:06)
[2025-01-11 05:00] LABS: Hemoglobin 11.1 g/dL (13.0-16.5); Mean Corp Hgb Conc 33.6 g/dL (32-36); Mean Corpuscular Hgb 29.3 pg (27.0-32.0); Mean Corpuscular Volume 87.1 fL (80-94); Mean Platelet Vol. 9.6 fl (6.2-12.0); Platelet Count 252 K/mm3 (150-450); RBC Distribution Width CV 14.1 % (11.6-14.6); RBC Distribution Width SD 44.8 fl (35.1-43.9); Red Blood Count 3.79 M/mm3 (4.6-6.2); White Blood Count 11.6 K/mm3 (4.4-11.0)
[2025-01-11 05:27] VITALS: BP 137/79; PULSE 72; RESP 18; TEMP 36.3; O2SAT 92
[2025-01-11] MEDS: 0.9% Saline Lock 10 ML Syringe IV ×2 (05:29→09:37)
[2025-01-11] MEDS: Methylprednisolone Sod Succ 40 MG/ML VIAL IV (05:29)
[2025-01-11 06:00] VITALS: BMI 25.9
[2025-01-11 06:20] LABS: Anion Gap 10 (5-15); BUN 22 mg/dL (4-19); BUN/Creat Ratio 27.9 RATIO (10-20); Calcium,Total 8.7 mg/dL (7.6-11.0); Carbon Dioxide 20.5 mmol/L (21.0-32.0); Chloride 107 mmol/L (98-108); Creatinine, Serum 0.79 mg/dL (0.70-1.20); EST Glomerular Filtration Rate 88 (>60); Estimated Creatinine Clearance 69.96 ml/min (50-250); Glucose 117 mg/dL (70-99); Potassium 4.4 mmol/L (3.3-5.1); Sodium Level 137 mmol/L (133-145)
[2025-01-11 08:00] VITALS: BP 142/79; PULSE 60; RESP 18; TEMP 36.3; O2SAT 93
[2025-01-11] MEDS: Azithromycin 250 MG Tablet 500 MG PO (08:10)
[2025-01-11] MEDS: Lisinopril 10 MG Tablet PO (08:10)
[2025-01-11] MEDS: Tamsulosin HCl 0.4 MG Capsule PO (08:11)
[2025-01-11] MEDS: Finasteride 5 MG Tablet PO (08:11)
[2025-01-11] MEDS: Aspirin 81 MG TAB.CHEW PO (08:11)
[2025-01-11] MEDS: guaiFENesin/D-Methorphan TAB.SR.12H 2 TABLET PO (08:11)
[2025-01-11] MEDS: Enoxaparin 40 MG/0.4 ML Syringe SC (08:11)
[2025-01-11] MEDS: Carvedilol 12.5 MG Tablet PO (08:11)
[2025-01-11 08:29] VITALS: PULSE 84; RESP 14; O2SAT 92
[2025-01-11] MEDS: Ipratropium/Albuterol Sulfate 3 ML AMPUL.NEB INHALATION ×2 (08:29→12:29)
[2025-01-11] MEDS: Acetylcysteine 800 MG/4 ML VIAL.NEB. INHALATION (08:29)
[2025-01-11] MEDS: Ceftriaxone 1 GM/50 ML BAG IV (09:36)
[2025-01-11 09:39] VITALS: O2SAT 89; O2SAT 91
--- NOTE | 2025-01-11 10:42 | CASEMGMT ---
Pt does not qualify for home oxygen.
[2025-01-11 12:40] VITALS: PULSE 72; RESP 14; O2SAT 91
--- NOTE | 2025-01-11 12:44 | DCINST_ITS ---
Discharge Instructions Diet Discharge Diet: - (DASH diet) DC O2, CPAP, BIPAP needs Home O2 Discharge instructions: No Dressing / Incision Discharge Activity: - (Increase activity as tolerated) Follow Up Care Test Results: Test results from this visit will be discussed in further detail at your follow- up appointment, if applicable. Discharge Plan Admission Admit Date/Time: 01/08/25 02:06 Primary Reason for Your Visit: Shortness of breath Attending Provider: Meenu Dixon Primary Care Provider: Forest Maki Consulting Providers: Georgia Valentine; Navid Nelson Instructions Patient Instructions: Pneumonia Community Acquired Additional Instructions / Restrictions: DISCHARGE INSTRUCTIONS PLEASE READ *Please take this with you to your next doctors appointment* - You will be discharged on Augmentin 875 mg twice daily for another 5 days - You will also be discharged on prednisone 40 mg for another 5 days -resume your home Trelegy Ellipta on discharge - Continue all other home medications as previously prescribed -Please call your primary care provider's office upon discharge to schedule a hospital follow up within 1 week. -For any concerning signs or symptoms please call 911 or proceed to the nearest emergency department Discharge Orders/Prescriptions Prescriptions: New amoxicillin-pot clavulanate 875-125 mg tablet 1 tab PO BID 5 Days Qty: 10 0RF Rx Instructions: Start the morning of 01/12/25 prednisone 20 mg tablet 40 mg PO DAILY 5 Days Qty: 10 0RF Continued finasteride [Proscar] 5 mg tablet 5 mg PO QDAY tamsulosin 0.4 MG capsule 0.4 mg PO DAILY aspirin 81 MG tablet,chewable 81 mg PO DAILY@0800 carvedilol 12.5 mg tablet 12.5 mg PO Q12.TCU lisinopril 20 mg tablet 20 mg PO DAILY albuterol sulfate 90 mcg/actuation HFA aerosol inhaler 2 puff inhalation Q4H PRN PRN (Reason: shortness of breath or wheezing) rosuvastatin 40 mg tablet 40 mg PO QHS Trelegy Ellipta 100-62.5-25 mcg blister with device 1 ea inhalation DAILY Referrals / Follow Up: Forest Maki MD [Primary Care Provider] - Within 1 Week Disposition Disposition (needs filled in before D/C Order can be placed): Home, Self Care
--- NOTE | 2025-01-11 12:53 | DS.PCM_ITS ---
Providers Date of Admission: 01/08/25 Date of Discharge: 01/11/25 Primary Care Physician: Dr. Forest Maki MD Reason For Visit: HYPOXIA PNA COPD EXAC Diagnosis Discharge Diagnosis (1) Hypoxia: Status: Acute Code(s): R09.02 - Hypoxemia (2) Pneumonia: Status: Acute Code(s): J18.9 - Pneumonia, unspecified organism Plan # Haemophilus influenza pneumonia # Hypoxia secondary to haemophilus influenza pneumonia and COPD exacerbation # BPH # History of coronary artery disease # Hypertension # COPD # Former tobacco use Medications at Discharge Home Medications aspirin 81 mg chewable tablet 81 mg PO DAILY@0800 for heart 11/30/16 tamsulosin 0.4 mg capsule 0.4 mg PO DAILY prostate 11/30/16 finasteride 5 mg tablet (Proscar) 5 mg PO QDAY prostate 12/03/17 albuterol sulfate 90 mcg/actuation aerosol inhaler 2 puff inhalation Q4H PRN PRN shortness of breath or wheezing 01/07/25 carvedilol 12.5 mg tablet 12.5 mg PO Q12.TCU blood pressure 01/07/25 fluticasone fur. 100 mcg-umeclid 62.5 mcg-vilant 25 mcg inhalat.powder (Trelegy Ellipta) 1 ea inhalation DAILY COPD 01/07/25 lisinopril 20 mg tablet 20 mg PO DAILY blood pressure 01/07/25 rosuvastatin 40 mg tablet 40 mg PO QHS cholesterol 01/07/25 amoxicillin 875 mg-potassium clavulanate 125 mg tablet 1 tab PO BID 5 days #10 tabs 01/11/25 prednisone 20 mg tablet 40 mg (2 x 20 mg) PO DAILY 5 days #10 tabs 01/11/25 Hospital Course Summary of Care Provided Minutes Spent on Discharge: 23 Hospital Course: # Haemophilus influenza pneumonia # Hypoxia secondary to haemophilus influenza pneumonia and COPD exacerbation # BPH # History of coronary artery disease # Hypertension # COPD # Former tobacco use 84-year-old male with the above presented to [facility] ED 01/08/2025 with increased shortness of breath. 2 weeks ago he had cough and congestion which resolved but the last couple of days prior to arrival he had increasing cough and shortness of breath so he came in for evaluation. Patient is 88% on room air and required O2 administration, he was given antibiotics and hospitalist contacted for admission. Patient continued on antibiotics, nebs, steroids. Sputum culture growing H. influenzae. Overall patient improved and was able to ambulate through the halls to satisfactory extent for discharge home. On day of discharge patient still has some shortness of breath but overall feels better than he did on presentation and is no longer hypoxic at rest. Patient was ambulated prior to discharge to assess for home O2 needs with ambulation. Discharge instructions as followed: - You will be discharged on Augmentin 875 mg twice daily for another 5 days - You will also be discharged on prednisone 40 mg for another 5 days -resume your home Trelegy Ellipta on discharge - Continue all other home medications as previously prescribed -Please call your primary care provider's office upon discharge to schedule a hospital follow up within 1 week. -For any concerning signs or symptoms please call 911 or proceed to the nearest emergency department Physical Exam Narrative General: Alert, oriented, no apparent distress HEENT: Atraumatic, normocephalic Eyes: Anicteric, normal conjunctiva, extraocular movements grossly intact Neck: Supple Respiratory: Improved airflow, no respiratory distress Cardiovascular: Regular rate GI: Soft, nontender, nondistended Extremities: No edema Musculoskeletal: Moving all extremities Neuro: No overt focal neurological deficits Skin: No rashes appreciated Psych: Cooperative Weight / BMI Weight Weight: 79.5 kg Body Mass Index (BMI) 25.9 ABG / Lab / Microbiology Data 01/11/25 04:36 01/11/25 04:36 Laboratory: Laboratory Results - last 24 hr 01/11/25 04:36: WBC 11.6 H, RBC 3.79 L, Hgb 11.1 L, Hct 33.0 L, MCV 87.1, MCH 29.3, MCHC 33.6, RDW Std Deviation 44.8 H, RDW Coeff of Jessica 14.1, Plt Count 252, MPV 9.6, Sodium 137, Potassium 4.4, Chloride 107, Carbon Dioxide 20.5 L, Anion Gap 10, BUN 22 H, Creatinine 0.79, Estim Creat Clear Calc 69.96, Est GFR (MDRD) Non-Af 88, BUN/Creatinine Ratio 27.9 H, Glucose 117 H, Calcium 8.7 Microbiology: Microbiology 01/08/25 08:10 Sputum, Expectorated/Coughed Gram Stain - Final 01/08/25 08:10 Sputum, Expectorated/Coughed Respiratory Culture - Final Haemophilus influenzae 01/08/25 07:25 Urine, Clean Catch Legionella Antigen - Final 01/08/25 07:25 Urine, Clean Catch Streptococcus pneumoniae Antigen (M - Final 01/08/25 03:30 Nasal Secretion MRSA (PCR) - Final 01/08/25 03:06 Mucosa - Nasopharyngeal Coronavirus COVID-19 PCR - Final 01/08/25 03:06 Mucosa - Nasopharyngeal Respiratory Panel (PCR) - Final 01/08/25 00:02 Mucosa - Nose SARS-CoV-2, Influenza & RSV (PCR) - Final D/C Instructions Discharge Diet: - (DASH diet) DC O2, CPAP, BIPAP Needs Home O2 Discharge instructions: No DC home with Oxygen: No Meaningful Use Info Meaningful Use Meaningful Use Diagnoses (Choose all that apply): None applicable Ischemic Stroke Statin Dosing Therapy Reference: STATIN DOSE THERAPY REFERENCE: * Patients > 75 years receive moderate or high dose statin therapy. * Patients 75 years or YOUNGER should receive HIGH intensity statin dose unless contraindicated. You will be required to document reason for non-treatment if statin daily dose does not meet guidelines. HIGH DOSE STATIN THERAPY DAILY Atorvastatin > than or = to 40 mg Rosuvastatin > than or = to 20 mg Amlodipine + Atorvastatin > than or = to 2.5/40 mg Ezetimibe + Simvastatin 10/80 mg Simvastatin 80mg Discharge Plan Admission Admit Date/Time: 01/08/25 02:06 Primary Reason for Your Visit: Shortness of breath Attending Provider: Meenu Dixon Primary Care Provider: Forest Maki Consulting Providers: Georgia Valentine; Navid Nelson Instructions Patient Instructions: Pneumonia Community Acquired Additional Instructions / Restrictions: DISCHARGE INSTRUCTIONS PLEASE READ *Please take this with you to your next doctors appointment* - You will be discharged on Augmentin 875 mg twice daily for another 5 days - You will also be discharged on prednisone 40 mg for another 5 days -resume your home Trelegy Ellipta on discharge - Continue all other home medications as previously prescribed -Please call your primary care provider's office upon discharge to schedule a hospital follow up within 1 week. -For any concerning signs or symptoms please call 911 or proceed to the nearest emergency department Discharge Orders/Prescriptions Prescriptions: New amoxicillin-pot clavulanate 875-125 mg tablet 1 tab PO BID 5 Days Qty: 10 0RF Rx Instructions: Start the morning of 01/12/25 prednisone 20 mg tablet 40 mg PO DAILY 5 Days Qty: 10 0RF Continued finasteride [Proscar] 5 mg tablet 5 mg PO QDAY tamsulosin 0.4 MG capsule 0.4 mg PO DAILY aspirin 81 MG tablet,chewable 81 mg PO DAILY@0800 carvedilol 12.5 mg tablet 12.5 mg PO Q12.TCU lisinopril 20 mg tablet 20 mg PO DAILY albuterol sulfate 90 mcg/actuation HFA aerosol inhaler 2 puff inhalation Q4H PRN PRN (Reason: shortness of breath or wheezing) rosuvastatin 40 mg tablet 40 mg PO QHS Trelegy Ellipta 100-62.5-25 mcg blister with device 1 ea inhalation DAILY Referrals / Follow Up: Forest Maki MD [Primary Care Provider] - Within 1 Week Disposition Disposition (needs filled in before D/C Order can be placed): Home, Self Care Charges/Coding Visit Charges Inpatient E&M: 67443 Disch Hosp
[2025-01-11 13:45] VITALS: BP 131/91; PULSE 70; RESP 18; TEMP 36.4; O2SAT 92
== END 2025-01-11 13:53 | disposition home or self-care (01) | DRG 194 ==
LOC: ED 01-08 02:05 → MS3 01-08 02:23
PROVIDERS: Internal Medicine; Admitting Provider Family Medicine; Emergency Provider Emergency Medicine; PCP Family Medicine; Visit Provider Internal Medicine
DX: J14 Pneumonia due to Hemophilus influenzae (principal); N13.8 Other obstructive and reflux uropathy; J44.1 Chronic obstructive pulmonary disease with (acute) exacerbation; I71.40 Abdominal aortic aneurysm, without rupture, unspecified; I10 Essential (primary) hypertension; E66.9 Obesity, unspecified; I25.10 Atherosclerotic heart disease of native coronary artery without angina pectoris; E78.5 Hyperlipidemia, unspecified; M19.90 Unspecified osteoarthritis, unspecified site; Z95.5 Presence of coronary angioplasty implant and graft; R09.02 Hypoxemia; Z79.82 Long term (current) use of aspirin; Z87.891 Personal history of nicotine dependence; R73.9 Hyperglycemia, unspecified; Z82.49 Family history of ischemic heart disease and other diseases of the circulatory system; Z86.16 Personal history of COVID-19; N40.1 Benign prostatic hyperplasia with lower urinary tract symptoms; Z86.718 Personal history of other venous thrombosis and embolism; I49.1 Atrial premature depolarization; Z68.30 Body mass index [BMI] 30.0-30.9, adult
CPT/HCPCS: 36415; 71045; 80048; 80053; 82962; 83036; 83605; 83735; 83880; 84145; 85025; 85027; 87070; 87077; 87205; 87449; 87631; 87633; 87635; 87641; 93005; 94640; 94668; 97116; 97161; 97165; 97530; 97535; 97802; 99285; A4216

== ENCOUNTER → 2025-09-27 | Outpatient (CLI) | payer MEDICARE, SELFPAY ==
[2019-12-27 11:13] VITALS: BMI 30.3
--- NOTE | 2025-09-27 14:35 | CT_ITS ---
PROCEDURE: CTA ABD/PELVIS W/WO CONTRAST 09/27/2025 REASON FOR EXAM: AAA TECHNIQUE: Procedure Code: [id number] Modality: CT Procedure: CTA ABD/PELVIS W/WO CONTRAST Multiplanar Sagittal and Coronal images were obtained. One or more dose reduction techniques were used (e.g., Automated exposure control, adjustment of the mA and/or kV according to patient size, use of iterative reconstruction technique). RADIATION DOSE SUMMARY: DLP: 970.48 mGycm FINDINGS: There are mild diffuse emphysematous changes. The heart size is unremarkable. There is coronary artery atherosclerosis. The liver contour is unremarkable with no masses. The pancreas and gallbladder are unremarkable. There is 1.7 cm enhancing lesion in the spleen, likely a splenic hemangioma. Both adrenal glands are unremarkable. There are multiple cysts in both kidneys. There is no hydronephrosis. No stones are identified. The bladder is underdistended, which limits evaluation. The prostate is enlarged. There is no bowel obstruction. There is colonic diverticulosis without evidence of diverticulitis. The appendix is not clearly visualized but there no secondary signs to suggest appendicitis. There is no hiatal hernia. There is aortic atherosclerosis. There is an infrarenal abdominal aortic aneurysm measuring 5.8 cm. The bilateral common iliac arteries and external iliac arteries are well opacified with no filling defects or occlusive lesions. There is no lymphadenopathy, ascites, or pneumoperitoneum. There are degenerative changes of the lumbosacral spine. CT/CTA Abd/Pelvis W/WO Contrast IMPRESSION: 5.8 cm infrarenal abdominal aortic aneurysm. Bilateral common and external yara ac arteries are well opacified. No obstructive uropathy or urolithiasis. No bowel obstruction. Colonic diverticulosis. 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 Reading Location: [id number]
== END | disposition home or self-care (01) ==
LOC: CT 14:34
PROVIDERS: PCP Family Medicine; Referring Provider Physician Assistant; Visit Provider Physician Assistant
DX: I71.40 Abdominal aortic aneurysm, without rupture, unspecified (principal)
CPT/HCPCS: 74174; Q9967; A4216